=== PATIENT | male | born 1940 | race Caucasian/White ===

== ENCOUNTER 2018-03-26 11:46 | Inpatient (IN) | payer MEDICARE, OTHER ==
[~2018-03-26] VITALS: Ht 170.2 cm; Wt 89.4 kg
[2018-03-26 11:49] VITALS: BP 157/101
[2018-03-26] MEDS ORDERED: PULMICORT0.25 MG/3 INH (11:54)
[2018-03-26] MEDS ORDERED: ALBUTEROL2.5 MG/31 INH (11:54)
[2018-03-26] MEDS ORDERED: BROVANA15 MCG/2 M INH (11:54)
[2018-03-26] MEDS ORDERED: STIOLTO RESPIMAT4 GM INH (11:54)
[2018-03-26] MEDS ORDERED: TRAZODONE HCL50 MG PO (11:55)
[2018-03-26] MEDS ORDERED: ONE DAILY1 EAC2 PO (11:55)
[2018-03-26] MEDS ORDERED: PREDNISONE 10 M10 MG PO (11:55)
[2018-03-26] MEDS ORDERED: ROBITUSSIN100 MG/53 PO (11:55)
[2018-03-26] MEDS ORDERED: ASPIR 8181 MG PO (11:56)
[2018-03-26 12:26] LABS: ABSOLUTE BASOPHILS 0.1 thou/uL (0.0-0.2); ABSOLUTE EOSINOPHILS 0.4 thou/uL (0.0-0.7); ABSOLUTE LYMPHOCYTES 1.3 thou/uL (0.8-5.3); ABSOLUTE MONOCYTES 1.2 thou/uL (0.0-1.2); ABSOLUTE NEUTROPHILS 8.5 thou/uL (1.6-8.1); BASOPHILS 0.9 %; EOSINOPHILS 3.2 %; HEMATOCRIT 43.3 % (42.0-52.0); LYMPHOCYTES 11.5 %; MCH 25.6 pg (26.0-34.0); MCHC 32.4 g/dL (28.0-37.0); MCV 78.8 fL (80.0-100.0); MONOCYTES 10.3 %; MPV 8.3 fl. (7.2-11.1); NUCLEATED RBCS 0 /100WBC; PLATELET COUNT* 230 thou/uL (150-400); POLYS 74.1 %; RBC 5.49 mil/uL (4.50-6.00); RDW-CV 15.1 % (10.5-14.5); WBC 11.5 thou/uL (4.0-11.0)
[2018-03-26 12:27] LABS: BE 0.4 mmol/L (-2 to +3); HCO3 24.6 mmol/L (22.0-26.0); PCO2 38.4 mmHg (35.0-45.0); PO2 89.3 mmHg (75.0-100.0); pH 7.424 (7.340-7.450)
[2018-03-26 12:31] LABS: ANION GAP 6 mmol/L (7-16); BUN 21 mg/dL (7-18); CALCIUM 7.9 mg/dL (8.5-10.1); CHLORIDE 107 mmol/L (98-107); CO2 28 mmol/L (21-32); CREATININE 1.1 mg/dL (0.6-1.3); GLUCOSE 135 mg/dL (70-99); POTASSIUM 4.1 mmol/L (3.5-5.1); SODIUM 141 mmol/L (136-145)
[2018-03-26 12:42] LABS: ALKALINE PHOSPHATASE 55 U/L (46-116); NT-PRO BRAIN NAT PEPTIDE 787 pg/mL (<300); SGOT 19 U/L (15-37); SGPT 25 U/L (30-65); TOTAL BILIRUBIN 0.7 mg/dL (<0.1-1.0); TOTAL PROTEIN 6.5 g/dL (6.4-8.2); TROPONIN-I LEVEL <0.06 ng/mL (<0.06)
[2018-03-26 13:45] LABS: URINE BILIRUBIN NEGATIVE (Negative); URINE BLOOD NEGATIVE (Negative); URINE CLARITY CLEAR; URINE COLOR YELLOW; URINE GLUCOSE-RANDOM NEGATIVE (Negative); URINE KETONES NEGATIVE (Negative); URINE LEUKOCYTES-REFLEX NEGATIVE (Negative); URINE NITRITE-REFLEX NEGATIVE (Negative); URINE PROTEIN NEGATIVE (Negative); URINE SPECIFIC GRAVITY 1.025 (1.005-1.030); URINE UROBILINOGEN 0.2 E.U./dl (0.2-1.0)
[2018-03-26 15:09] VITALS: BP 154/73
[2018-03-26 16:01] VITALS: BP 166/81
--- NOTE | 2018-03-26 16:43 | NUR ---
PT ARRIVED TO THE UNIT JUST AFTER 4PM. PT IS A&O X4 CALM AND COOPERATIVE. PT HAS NO C/O PAIN AT THIS TIME. PT PLACED ON THE MONITOR AND IS TRACING A FIB WITH RATES IN THE 80'S AND 90'S. PT VERBALIZED UNDERSTANDING OF ADMISSION INSTRUCTIONS. PT CURRENTLY IN BED WITH TECH DOING AN ECHO. NURSING WILL CONTINUE TO MONITOR.
--- NOTE | 2018-03-26 17:24 | 2DMMODE ---
[place] [address] 2 D/M-MODE ECHOCARDIOGRAM Name: CHELSEA RODRIGUEZ Room: [address] IN [facility]#: [id number] Admission: 03/26/18 Attend Phys: Nickie Finch, Discharge: Date of : 36 Date of Service: 03/26/18 1724 Report #: [id number] THIS REPORT FOR: //name// APPROVED REPORT Study performed: 03/26/2018 16:29:17 EXAM: Comprehensive 2D, Doppler, and color-flow Echocardiogram Patient Location: In-Patient Room #: [facility] Status: routine BSA: 2.00 HR: 99 bpm BP: 166/81 mmHg Rhythm: NSR Other Information Study Quality: Good Indications Atrial Fibrillation 2D Dimensions LVEF(%): 60.20 (>50%) IVSd: 13.57 (7-11mm) LVOT Diam: 19.68 (18-24mm) LVDd: 39.96 mm PWd: 12.98 (7-11mm) Ascending Ao: 27.43 (22-36mm) LVDs: 27.31 (25-40mm) Aortic Root: 33.32 mm Monsalve's LVEF: 60.20 % Volumes Left Atrial Volume (Systole) LA ESV Index: 20.10 mL/m2 Aortic Valve AoV Peak Reid.: 1.23 m/s AO Peak Gr.: 6.02 mmHg LVOT Max P.76 mmHg AO Mean Gr.: 2.78 mmHg LVOT Mean P.34 mmHg LVOT Max V: 0.83 m/s AO V2 VTI: 20.17 cm LVOT Mean V: 0.53 m/s YAMILEX (VTI): 2.28 cm2 LVOT V1 VTI: 15.15 cm Mitral Valve E/A Ratio: 0.87 [place] [address] 2 D/M-MODE ECHOCARDIOGRAM Name: CHELSEA RODRIGUEZ Room: [address] IN [facility]#: [id number] Admission: 03/26/18 Attend Phys: Nickie Finch, Discharge: Date of : 36 Date of Service: 03/26/18 1724 Report #: [id number] MV Decel. Time: 232.06 ms MV E Max Reid.: 0.86 m/s MV PHT: 67.30 ms MVA (PHT): 3.27 cm2 TDI E/Lateral E': 7.82 E/Medial E': 7.82 Medial E' Reid.: 0.11 m/s Lateral E' Reid.: 0.11 m/s Pulmonary Valve PV Peak Reid.: 0.90 m/s PV Peak Gr.: 3.23 mmHg Left Ventricle The left ventricle is normal size. There is normal LV segmental wall motion. Mild concentric left ventricular hypertrophy. Left ventricular systolic function is normal. The left ventricular ejection fraction is within the normal range. LVEF is 60-65%. Grade I - abnormal relaxation pattern. Right Ventricle The right ventricle is normal size. The right ventricular systolic function is normal. Atria The left atrium size is normal. The right atrium size is normal. Aortic Valve The aortic valve is normal in structure. No aortic regurgitation is present. There is no aortic valvular stenosis. Mitral Valve The mitral valve is normal in structure. There is no mitral valve regurgitation noted. No evidence of mitral valve stenosis. Tricuspid Valve The tricuspid valve is normal in structure. There is no tricuspid valve regurgitation noted. Pulmonic Valve Pulmonic valve is not well visualized. There is no pulmonic valvular regurgitation. Great Vessels The aortic root is normal in size. IVC [place] [address] 2 D/M-MODE ECHOCARDIOGRAM Name: CHELSEA RODRIGUEZ Room: [address] IN .R.#: [id number] Admission: 03/26/18 Attend Phys: Nickie Finch, Discharge: Date of : 36 Date of Service: 03/26/18 1724 Report #: [id number] collapses with >50% inspiration Pericardium There is no pericardial effusion. <Conclusion> Mild concentric left ventricular hypertrophy. LVEF is 60-65%. <ELECTRONICALLY SIGNED> By: Raf Mann MD, [facility] 03/26/18 1724 23 23 Raf Mann MD, FACC /INF
--- NOTE | 2018-03-26 18:19 | NUR ---
PT CONTINUES TO BE A&O HIS HR INCREASED TO THE 140'S, CARDIZEM DRIP STARTED AT 5MG/HR. RATES ARE NOW IN THE 120'S AND TEENS. PT DENIES ANY C/O CHEST PAIN OR DISTRESS. NURSING WILL CONTINUE TO MONITOR.
--- NOTE | 2018-03-26 18:20 | EKG ---
[place] [address] ELECTROCARDIOGRAM REPORT Name: CHELSEA RODRIGUEZ Room: [address] IN [facility]#: [id number] Admission: 03/26/18 Attend Phys: Nickie Finch MD Discharge: Date of : 38 Report #: [id number] THIS REPORT FOR: //name// [facility] ED Test Date: 2018-03-26 Test Time: 11:53:41 Pat Name: CHELSEA RODRIGUEZ Department: Room: Gender: Insurance Legal Assistant: : 1940 Requested By: Xena Beth Order Number: [id number] MD: Raf Mann Measurements Intervals [place] Rate: 162 P: [place]: QRS: 167 QRSD: 125 T: 26 QT: 314 QTc: 516 Interpretive Statements rapid atrial fibrillation low voltage Right bundle branch block Baseline wander in lead(s) II No previous ECG available for comparison Electronically Signed On 03-26-2018 18:20:42 CDT by Raf Mann [email or web address] <ELECTRONICALLY SIGNED> By: Raf Mann MD, [facility] 03/26/18 1820 1153 115 Raf Mann MD, [facility] /EPI
[2018-03-26 20:00] VITALS: BP 146/80
[2018-03-27] VITALS: BP 137/76
[2018-03-27 04:00] VITALS: BP 142/78
[2018-03-27 04:28] LABS: HEMATOCRIT 42.3 % (42.0-52.0); HEMOGLOBIN 13.8 gm/dL (14.0-18.0); MCH 25.6 pg (26.0-34.0); MCHC 32.7 g/dL (28.0-37.0); MCV 78.3 fL (80.0-100.0); MPV 8.6 fl. (7.2-11.1); RBC 5.4 mil/uL (4.50-6.00); RDW-CV 14.7 % (10.5-14.5); WBC 7.5 thou/uL (4.0-11.0)
[2018-03-27 04:32] LABS: CALCIUM 7.8 mg/dL (8.5-10.1); CREATININE 0.9 mg/dL (0.6-1.3); MAGNESIUM 1.9 mg/dL (1.8-2.4)
[2018-03-27 04:52] LABS: INR 1.1; PROTIME 10.7 Seconds (9.20-11.50)
--- NOTE | 2018-03-27 05:32 | NUR ---
PT CARE ASSUMED AFTER REPORT. ASSESSMENT COMPLETE. AFIB ON MONITOR. NEW IV PLACED AFTER PT DISLODGED PREVIOUS ONE. CARDIZEM GTT INFUSING. DENIES PAIN. PT VERY SOA WITH MOVEMENT/EXERTION. O2 3L NC. FALL PRECAUTIONS IN PLACE INCLUDING BED ALARM. CALL LIGHT IN REACH. BED IN LOWEST POSITION. SLOW TO PROGRESS TOWARDS GOALS.
[2018-03-27 08:00] VITALS: BP 145/80
--- NOTE | 2018-03-27 08:22 | NUR ---
ASSUMED CARE OF PT AT 0705. PT CONTINUES TO BE A&O X4 CALM AND COOOPERATIVE. HE HAS NO C/O PAIN OR DISTRESS AND REPORTS EXTREME SOA WITH ANY EXERTION. PT HR HAS BEEN SPIKING TO THE 150'S. CARDIZEM INCREASED TO 10MG/HR. WILL CONTINUE TO MONITOR CLOSELY.
[2018-03-27 12:05] VITALS: BP 145/72
--- NOTE | 2018-03-27 12:19 | NUR ---
Pt is A&O. Resides at [facility]. IDL provides meals, laundry and housekeeping, Pt completes on IADLS. Pt wears home o2 continous through [employer]. Pt has an electric wc that he uses for distances outside of his apartment. Hx of HH. No hx of SNF. Strong support sx, has a son and dtr in the area. Discussed possible need for HH, Pt stated, "I would like an aide only, I've had HH before and I don't want a nurse or therapy." Pt stated that he has only been able to complete a sponge bath. Informed that he would likely have to have a nurse ordered, in order to get an aide, Pt declined wanting HH if he can't just have an aide. CM following.
--- NOTE | 2018-03-27 13:34 | EKG ---
[place] [address] ELECTROCARDIOGRAM REPORT Name: CHELSEA RODRIGUEZ Room: [address] IN [facility]#: [id number] Admission: 03/26/18 Attend Phys: Nickie Finch MD Discharge: Date of : 38 Report #: [id number] THIS REPORT FOR: //name// [facility] ED Test Date: 2018-03-26 Test Time: 14:05:32 Pat Name: CHELSEA RODRIGUEZ Department: Room: Gender: Supervisor Evaporator: [facility] : 1940 Requested By: Xena Beth Order Number: [id number] MD: Raf Mann Measurements Intervals [place] Rate: 117 P: [place]: QRS: 97 QRSD: 133 T: 23 QT: 377 QTc: 526 Interpretive Statements Atrial fibrillation Paired ventricular premature complexes RBBB and LPFB Compared to ECG 03/26/2018 11:53:41 Ventricular premature complex(es) now present Electronically Signed On 03-27-2018 13:34:30 CDT by Raf Mann [email or web address] <ELECTRONICALLY SIGNED> By: Raf Mann MD, [facility] 03/27/18 1334 1405 1405 Raf Mann MD, [facility] /EPI
--- NOTE | 2018-03-27 13:38 | EKG ---
[place] [address] ELECTROCARDIOGRAM REPORT Name: CORAL RODRIGUEZBERT Christopher Room: [address] ADM IN .R.#: [id number] Admission: 03/26/18 Attend Phys: Nickie Finch MD Discharge: Date of : 36 Report #: [id number] THIS REPORT FOR: //name// [facility] Test Date: 2018-03-26 Test Time: 19:37:31 Pat Name: CHELSEA RODRIGUEZ Department: Room: [address] Gender: M Slicing Machine Operator: : 1940 Requested By: Nickie Finch Order Number: [id number] Reading MD: Raf Mann Measurements Intervals [place] Rate: 113 P: 1 [place]: 147 QRS: 32 QRSD: 144 T: 14 QT: 425 QTc: 583 Interpretive Statements atrial fibrillation with artifact Right bundle branch block PVC Electronically Signed On 03-27-2018 13:38:14 CDT by Raf Mann [email or web address] <ELECTRONICALLY SIGNED> By: Rfa Mann MD, [facility] 03/27/18 1338 193 193 Raf Mann MD, [facility]ACC /EPI
--- NOTE | 2018-03-27 13:51 | EKG ---
[place] [address] ELECTROCARDIOGRAM REPORT Name: CHELSEA RODRIGUEZ Room: [address] ADM IN .R.#: [id number] Admission: 03/26/18 Attend Phys: Nickie Finch MD Discharge: Date of : 36 Report #: [id number] THIS REPORT FOR: //name// [facility] Test Date: 2018-03-27 Test Time: 08:14:50 Pat Name: CHELSEA RODRIGUEZ Department: Room: [address] Gender: M Banking Assistant: JACKELIN : 1940 Requested By: Raf Mann Order Number: [id number] Russ MD: Raf Mann Measurements Intervals [place] Rate: 109 P: -40 [place]: 174 QRS: 98 QRSD: 140 T: -1 QT: 393 QTc: 530 Interpretive Statements atrial fibrillation ventricular premature complexes RBBB and LPFB Electronically Signed On 03-27-2018 13:50:58 CDT by Raf Mann [email or web address] <ELECTRONICALLY SIGNED> By: Raf Mann MD, [facility] 03/27/18 1350 0814 3 Raf Mann MD, FACC /EPI
[2018-03-27 16:06] VITALS: BP 149/80
--- NOTE | 2018-03-27 18:20 | NUR ---
PT REMAINS A&O CALM AND COOPERATIVE. HE WAS CHANGED FROM IV TO PO CARDIZEM, RATES ARE CURRENTLY FROM 90 TO 115. PT HAS NO C/O PAIN OR DISTRESS. HE HAS A GOOD APPETITE HE HAS ATE GREATER THAN 75% OF ALL MEALS TODAY. HOURLY ROUNDING COMPLETED FOR COMFORT AND SAFTEY.
--- NOTE | 2018-03-27 18:47 | NUR ---
PT IV INFILTRATED AND WAS REMOVED BY THIS NURSE. A NEW IV WAS PLACED IN THE PATIENTS LEFT POSTERIOR FOREARM. INSERTED WITH 1 ATTEMPT, BLOOD RETURN POSITIVE AND FLUSHES WITHOUT RESISTANCE.
[2018-03-27 20:00] VITALS: BP 137/74
[2018-03-28] VITALS (7 sets, daily range): BP systolic 110–144; BP diastolic 55–74
[2018-03-28 04:56] LABS: HEMATOCRIT 39.6 % (42.0-52.0); HEMOGLOBIN 12.9 gm/dL (14.0-18.0); MCH 25.4 pg (26.0-34.0); MCHC 32.6 g/dL (28.0-37.0); MPV 8.4 fl. (7.2-11.1); RBC 5.08 mil/uL (4.50-6.00); WBC 14.1 thou/uL (4.0-11.0)
[2018-03-28 05:05] LABS: INR 1.2; PROTIME 11.2 Seconds (9.20-11.50)
--- NOTE | 2018-03-28 05:42 | NUR ---
PT CARE ASSUMED AFTER REPORT. ASSESSMENT COMPLETE. AFIB ON MONITOR. O2 3L NC. DENIES PAIN. FALL PRECAUTIONS IN PLACE INCLUDING BED ALARM. CALL LIGHT IN REACH. BED IN LOWEST POSITION. PROGRESSING TOWARDS GOALS.
[2018-03-28 06:17] LABS: CALCIUM 8.4 mg/dL (8.5-10.1); CREATININE 0.9 mg/dL (0.6-1.3); POTASSIUM 4.2 mmol/L (3.5-5.1)
--- NOTE | 2018-03-28 08:28 | NUR ---
ASSUMED PT. CARE AND RECEIVED REPORT AT 0730. PT A/OX4, VSS, MONITOR ON TRACING AFIB RATES IN THE 80'S CURRENTLY. PT. DENIES CURRENT PAIN. STATES HE IS BREATHING BETTER THIS MORNING THAN IN 2 WEEKS. FULL ASSESSMENT COMPLETED, REFER TO CHARTING. PT ON BASELINE 3LNC @ 95%. CALL LIGHT IN REACH, FALL PRECAUTIONS IN PLACE. WILL CONTINUE WITH PLAN OF CARE.
--- NOTE | 2018-03-28 13:30 | NUR ---
Pt discharging to home today with [facility]. Faxed dc orders. Patience here from [facility] to meet with Pt. Dtr/facility to provide dc transportation.
[2018-03-28] MEDS ORDERED: DIGOXIN250 MCG PO (15:12)
[2018-03-28] MEDS ORDERED: CARDIZEM CD180 MG PO (15:12)
[2018-03-28] MEDS ORDERED: LEVAQUIN 500 M500 M2 PO (15:13)
[2018-03-28] MEDS ORDERED: COUMADIN 2 MG TA2 M1 PO (15:13)
[2018-03-28] MEDS ORDERED: PREDNISONE 10 M10 MG PO (15:15)
[2018-03-28] MEDS ORDERED: CEPACOL SORE T1 EAC7 PO (15:42)
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
--- NOTE | 2018-03-31 14:35 | NUR ---
WAS ASKED TO GET PRIOR AUTH FOR DIGOXIN FOR PT. CALL TO [facility], WAS ABLE TO FAX INFO TO THEM FOR PRIOR AUTH, ASKED FOR IT TO BE EXPEDITED, COULD TAKE 24HR. SCRIPT IS AT [email or web address] [phone]
== END 2018-03-28 17:05 | disposition home health service (06) | DRG 177 ==
LOC: M.ERS 11:46 → M.2W 14:18 → M.TBA-ER 14:18 → M.2W 15:15
PROVIDERS: Internal Medicine Cardiovascular Disease; Personal Emergency Response Attendant; ADMIT Internal Medicine
DX: J69.0 Pneumonitis due to inhalation of food and vomit (principal); J96.20 Acute and chronic respiratory failure, unspecified whether with hypoxia or hypercapnia; J44.1 Chronic obstructive pulmonary disease with (acute) exacerbation; I48.91 Unspecified atrial fibrillation; I10 Essential (primary) hypertension; Z99.81 Dependence on supplemental oxygen; Z79.899 Other long term (current) drug therapy; Z79.82 Long term (current) use of aspirin; Z87.891 Personal history of nicotine dependence; Z90.89 Acquired absence of other organs; Z98.49 Cataract extraction status, unspecified eye

== ENCOUNTER 2018-12-28 04:55 | Inpatient (IN) | payer MEDICARE, OTHER ==
[~2018-12-28] VITALS: Ht 170.2 cm; Wt 71.7 kg
[~2018-12-28 04:55] MED LIST: ALBUTEROL2.5 MG/31 INH; ASPIR 8181 MG PO; BROVANA15 MCG/2 M INH; CARDIZEM CD180 MG PO; CEPACOL SORE T1 EAC7 PO; COUMADIN 2 MG TA2 M1 PO; DIGOXIN250 MCG PO; LEVAQUIN 500 M500 M2 PO; ONE DAILY1 EAC2 PO; PREDNISONE 10 M10 MG PO; PULMICORT0.25 MG/3 INH; ROBITUSSIN100 MG/53 PO; STIOLTO RESPIMAT4 GM INH; TRAZODONE HCL50 MG PO
[2018-12-28 04:56] VITALS: BP 143/65
[2018-12-28] MEDS ORDERED: PRADAXA150 MG PO (05:10)
[2018-12-28] MEDS ORDERED: MUCINEX600 MG PO (05:13)
[2018-12-28] MEDS ORDERED: CARTIA XT180 M1 PO ×2 (05:14→09:34)
[2018-12-28 05:31] LABS: ABSOLUTE BASOPHILS 0.1 thou/uL (0.0-0.2); ABSOLUTE EOSINOPHILS 0.2 thou/uL (0.0-0.7); ABSOLUTE LYMPHOCYTES 1.6 thou/uL (0.8-5.3); ABSOLUTE MONOCYTES 1.4 thou/uL (0.0-1.2); ABSOLUTE NEUTROPHILS 9.6 thou/uL (1.6-8.1); BASOPHILS 0.8 %; EOSINOPHILS 1.8 %; HEMATOCRIT 43.4 % (42.0-52.0); LYMPHOCYTES 12.3 %; MCH 23.6 pg (26.0-34.0); MCHC 32.2 g/dL (28.0-37.0); MCV 73.4 fL (80.0-100.0); MONOCYTES 11.1 %; MPV 8.4 fl. (7.2-11.1); NUCLEATED RBCS 0 /100WBC; PLATELET COUNT* 263 thou/uL (150-400); RBC 5.92 mil/uL (4.50-6.00); RDW-CV 16.3 % (10.5-14.5); WBC 12.9 thou/uL (4.0-11.0)
[2018-12-28 05:38] LABS: APTT 31.5 Seconds (25.0-31.3); PROTIME 10.5 Seconds (9.20-11.50)
[2018-12-28 05:52] LABS: ALBUMIN 3.7 g/dL (3.4-5.0); ALKALINE PHOSPHATASE 94 U/L (46-116); ANION GAP 9 mmol/L (7-16); BUN 18 mg/dL (7-18); CALCIUM 8.8 mg/dL (8.5-10.1); CHLORIDE 104 mmol/L (98-107); CO2 28 mmol/L (21-32); GLUCOSE 102 mg/dL (70-99); LIPASE 242 U/L (73-393); MAGNESIUM 2.1 mg/dL (1.8-2.4); NT-PRO BRAIN NAT PEPTIDE 558 pg/mL (<300); SGOT 20 U/L (15-37); SGPT 26 U/L (30-65); SODIUM 141 mmol/L (136-145); TOTAL BILIRUBIN 0.5 mg/dL (<0.1-1.0); TOTAL PROTEIN 7.5 g/dL (6.4-8.2); TROPONIN-I LEVEL <0.06 ng/mL (<0.06)
[2018-12-28 06:40] VITALS: BP 146/64
[2018-12-28 08:00] VITALS: BP 174/75
[2018-12-28] MEDS ORDERED: UNICOMPLEX M TA1 TA1 PO (09:37)
--- NOTE | 2018-12-28 11:29 | NUR ---
ASSUMED CARE OF PATIENT AT 0730 THIS AM. PATIENT HAD NEWLY ARRIVED FROM THE ER. PATIENT PLACED ON TELE MONITOR BY COLOR SEPARATION PHOTOGRAPHER. PATIENT ORIENTED TO ROOM AND CALL LIGHT AND PROCEDURES. ADMISSION QUESTIONS COMPLETED. PATIENT GIVEN BREAKFAST. MEDICATIONS RECONCILED WITH PATIENT. PATIENT IS RESTING AT THIS TIME. CALL LIGHT IS IN REACH. TELE SHOWS SR WITH PACS AND BBB. O2 IS ON AT 3 LITERS NC. RESPIRATORY TX STARTED PER RT.
[2018-12-28 12:00] VITALS: BP 143/56
[2018-12-28] MEDS ORDERED: ELIQUIS5 MG PO (13:35)
[2018-12-28 15:15] VITALS: BP 144/63
[2018-12-28 20:00] VITALS: BP 162/74
[2018-12-29] VITALS: BP 143/62
--- NOTE | 2018-12-29 03:17 | NUR ---
ASSUMED PT CARE AT 1930. ASSESSMENT COMPLETED CHARTED. ABLE TO MAKE NEEDS KNOWN. PT ON BEDREST FOR EXTREME SOB WITH EXCERSION. USES URINAL AND BEDPAN. NO C/O PAIN OR SOA. VSS. RESTING IN BED AT THIS TIME. WILL CONTINUE TO MONITOR.
[2018-12-29 04:00] VITALS: BP 152/86
[2018-12-29 07:54] VITALS: BP 144/96
[2018-12-29 12:17] VITALS: BP 140/48
--- NOTE | 2018-12-29 14:11 | EKG ---
[place] [address] ELECTROCARDIOGRAM REPORT Name: CHELSEA RODRIGUEZ JR Room: [address] ADM IN M.R.#: [id number] Admission: 12/28/18 Attend Phys: Oniel Hughes MD Discharge: Date of : 36 Report #: [id number] THIS REPORT FOR: //name// [facility] ED Test Date: 2018-12-28 Test Time: 05:00:20 Pat Name: CHELSEA JENNIFER Department: Room: [facility] Gender: Bakeshop Cleaner: CAROLE : 1940 Requested By: Sadiq Horner Order Number: [id number] MD: Romel Huff Measurements Intervals [place] Rate: 75 P: 0 [place]: 214 QRS: -136 QRSD: 136 T: 30 QT: 379 QTc: 424 Interpretive Statements Sinus rhythm Atrial premature complexes Borderline prolonged OK interval Right bundle branch block Compared to ECG 03/27/2018 08:14:50 Atrial premature complex(es) now present Atrial fibrillation no longer present Ventricular premature complex(es) no longer present Left posterior fascicular block no longer present Electronically Signed On 12-29-2018 14:11:15 SHAPER MACHINE HAND by Romel Huff [email or web address] <ELECTRONICALLY SIGNED> By: Romel Huff MD, [facility] 12/29/18 1411 0500 0500 Romel Huff MD, [facility] /EPI
--- NOTE | 2018-12-29 14:14 | EKG ---
[place] [address] ELECTROCARDIOGRAM REPORT Name: CHELSEA RODRIGUEZ JR Room: [address] ADM IN M.R.#: [id number] Admission: 12/28/18 Attend Phys: Oniel Hughes MD Discharge: Date of : 36 Report #: [id number] THIS REPORT FOR: //name// [facility] Test Date: 2018-12-28 Test Time: 10:54:46 Pat Name: CHELSEA RODRIGUEZ Department: Room: [address] Gender: M Injection Molding Supervisor: 27 : 1940 Requested By: Oniel Hughes Order Number: [id number] Russ MD: Romel Huff Measurements Intervals [place] Rate: 78 P: -14 [place]: 165 QRS: -108 QRSD: 143 T: -20 QT: 383 QTc: 437 Interpretive Statements Sinus rhythm Atrial premature complexes Right bundle branch block Anteroseptal infarct, age indeterminate Compared to ECG 03/27/2018 08:14:50 Myocardial infarct finding now present Atrial fibrillation no longer present Ventricular premature complex(es) no longer present Electronically Signed On 12-29-2018 14:14:05 FREEZER MACHINE OPERATOR by Romel Huff [email or web address] <ELECTRONICALLY SIGNED> By: Romel Huff MD, [facility] 12/29/18 1414 1054 1054 Romel Huff MD, [facility]AC /EPI
--- NOTE | 2018-12-29 14:17 | EKG ---
[place] [address] ELECTROCARDIOGRAM REPORT Name: CHELSEA RODRIGUEZ JR Room: [address] ADM IN M.R.#: [id number] Admission: 12/28/18 Attend Phys: Oniel Hughes MD Discharge: Date of : 36 Report #: [id number] THIS REPORT FOR: //name// [facility] Test Date: 2018-12-28 Test Time: 17:14:09 Pat Name: CHELSEA RODRIGUEZ Department: Room: [address] Gender: M Ethernet Network Architect: : 1940 Requested By: Oniel Hughes Order Number: [id number] Russ MD: Romel Huff Measurements Intervals [place] Rate: 93 P: -37 [place]: 190 QRS: -140 QRSD: 145 T: -18 QT: 369 QTc: 459 Interpretive Statements sinus rhythm with pac's Right bundle branch block Electronically Signed On 12-29-2018 14:17:08 SPECIAL SERVICES SUPERVISOR by Romel Huff [email or web address] <ELECTRONICALLY SIGNED> By: Romel Huff MD, [facility] 12/29/18 1417 D: 02/1713 13 Romel Huff MD, FACC /EPI
--- NOTE | 2018-12-29 14:37 | NUR ---
Pt is A&O. Pt resides at [facility]. Pt is independent with IADLS, facilty completes ADLs. Pt states that he can ambulate short distances only, Pt uses a power wc for longer distances. Pt wears continues o2 through [employer]. Hx of [facility]. No hx of SNF. Goal is home at [place]. Pt stated that he does not want HH at [place]. Following.
--- NOTE | 2018-12-29 14:58 | NUR ---
Pt is A&O. Resides at [facility]. Pt is independent with ADLs, IDL completes IADLS. Pt wears continuous o2 provided through [employer]. Pt is able to ambulate distances within his apartment, uses a power wc for longer distances. Hx of [facility]. No hx of SNF. Goal is to return to [facility] [place]. Following.
[2018-12-29 16:00] VITALS: BP 147/63
--- NOTE | 2018-12-29 16:16 | CON ---
[address] [address] CONSULTATION Name: CHELSEA RODRIGUEZ JR Room: [address] IN M.R.#: [id number] Admission: 12/28/18 Attend Phys: Oniel Hughes MD Discharge: Date of : 36 Report #: [id number] THIS REPORT FOR: //name// CC: Raf Hughes MD DATE OF SERVICE: 12/29/2018 LOCATION: Room [facility]. ATTENDING PHYSICIAN: Dr. Valera. INDICATION FOR CONSULTATION: Severe COPD, oxygen every other day, steroid dependent. HISTORY OF PRESENT ILLNESS: The patient is an 78-year-old male, prior smoker, with severe COPD. He has been on oxygen 3 liters for the past 4-5 years and then also has been every other day prednisone dependent. The patient had a recent episode of atrial fibrillation with rapid ventricular response. He has had possibly some chest wall trauma on his left side and movement causes pain. Not much movement at this time. He is due for a stress test. The patient has a history of hypertension and atrial fibrillation in the past, has been on chronic anticoagulation, was on warfarin and then he was changed to apixaban 5 mg b.i.d. for his atrial fibrillation. Prednisone dose has been 10 mg every other day and he has done well with that. He has kept him out of the hospital, kept him out of flareups. PAST MEDICAL HISTORY: Atrial fibrillation, severe COPD, oxygen every other day, steroid dependent for the past 5-7 years and then also some mild hypertension. No history of diabetes. ALLERGIES: He has no known medical allergies. OUTPATIENT MEDICATIONS: Included DuoNeb nebulizers 3-4 times a day followed with budesonide 0.25 mg inhaled b.i.d., oxygen dose is 3 liters nasal cannula continuous, prednisone dose 10 mg every Saturday, Saturday and Saturday and he is also on apixaban 5 mg b.i.d., Lanoxin 0.25 mg daily, diltiazem (Cartia XT) 180 mg b.i.d. He was supposed to be on a Stiolto 2 puffs daily, I am not sure if he is still on that yet or not. FAMILY HISTORY: Negative for premature cardiopulmonary disease. SOCIAL HISTORY: The patient was living at [facility]. Dr. Nath may have been his primary care physician. His other social history, he has a prior 40-50 pack [place] [address] CONSULTATION Name: CHELSEA RODRIGUEZ Room: [address]#: [id number] Admission: 12/28/18 Attend Phys: Oniel Hughes MD Discharge: Date of : 36 Report #: [id number] quit 5-7 years ago. Denies any alcohol or illicit drug use. He drinks about a glass of alcohol or wine maybe 2-3 times a week. REVIEW OF SYSTEMS: A 14-point review of systems reviewed and negative except for pertinent positives noted in HPI. PHYSICAL EXAMINATION: GENERAL: Alert, oriented 78-year-old male, remembers me as I walked in the room, in no acute distress. VITAL SIGNS: Blood pressure is 144/96, heart rate is 70 and regular, respirations 16 and temperature is 36.4 degrees. He is 5 feet 10 inches tall, weight is 72 kilograms or 158 pounds, BMI is 25, saturation on 3 liters is 94%. HEENT: Nares and pharynx are clear. NECK: Supple, without nodes. No chest wall tenderness. CHEST: Reveals markedly diminished breath sounds, prolonged expiratory phase. CARDIOVASCULAR: Irregular rate and rhythm with ventricular response in the 70s. No S3 is noted. Variable S1 is noted. ABDOMEN: Soft. No masses, megaly. EXTREMITIES: No calf tenderness. No cyanosis, clubbing or edema. NEUROLOGIC: Nonfocal and intact. LABORATORY DATA: Hemoglobin is 14, white count is 12,900, normal differential, platelets 263,000 and no increase in eosinophils. Chemistry: Sodium is 141, potassium is 4.0, chloride is 104, bicarbonate is 28, BUN is 18, creatinine 1.0 and glucose is 102. LFTs within normal limits. Anti-proBNP is 558. Troponins negative. Albumin is 3.7. Lipase 242. Outpatient PFTs pending final results from office records. FEV1 is 0.7 with an FVC of 2.2 liters, ratio is 31%, FEV1 is 35% of predicted consistent with GOLD level 4. Chest x-ray shows COPD, hyperinflation, no CHF. EKG shows irregular rate and rhythm with atrial fibrillation, no acute changes. IMPRESSION: 1. Atypical chest pain may be related to chronic obstructive pulmonary disease. 2. Severe chronic obstructive pulmonary disease, oxygen every other day, steroid dependent. PLAN: Continue current meds for COPD. We will see what the chemical induced stress test shows on this patient. Not a good operative candidate, not a good intervention candidate. Conservative therapy is indicated. The patient I believe was previously a DNR/DNI. I think he is a full code blue at this time. We will await the Cardiology consult. [address] [place] [address] CONSULTATION Name: CHELSEA RODRIGUEZ JR Room: [address] IN M.R.#: [id number] Admission: 12/28/18 Attend Phys: Oniel Hughes MD Discharge: Date of : 38 Report #: [id number] Thanks again for allowing us to participate in this man's care. I will continue to follow up in the office after he is discharged. <ELECTRONICALLY SIGNED> By: Chase Contreras MD 12/29/18 1616 0841 [id number] Contreras MD /nt
--- NOTE | 2018-12-29 18:27 | NUR ---
PT DYSPNEIC WITH LABORED RESPIRATIONS AT REST. LUNGS DIM THROUGHOUT. PT DENIES INCREASED SOA OR PAIN. 3L O2 NC, SAT LOW TO MID 90S. PT ABLE TO MAKE NEEDS KNOWN, CALL LIGHT IN REACH
[2018-12-29 19:00] VITALS: BP 107/86
[2018-12-30] VITALS: BP 144/70
[2018-12-30 03:51] VITALS: BP 127/55
--- NOTE | 2018-12-30 06:33 | NUR ---
ASSESSMENT COMPLETED CHARTED. VSS. TRACING SR WITH PVCS/PACS AND OCCASIONAL AFIB CAPTURED ON EKG. PT RESTED WELL T/O THIS SHIFT. PT IS NPO PENDING STRESS TEST TODAY. NO NEW CONCERNS. HOURLY ROUNDING FOR SAFETY. CLWR.
[2018-12-30 08:00] VITALS: BP 144/62
--- NOTE | 2018-12-30 09:48 | EKG ---
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1940 Requested By: Oniel Hughes Order Number: [id number] Reading MD: Eliud Dimas Measurements Intervals [place] Rate: 74 P: MA: QRS: 65 QRSD: 140 T: 3 QT: 409 QTc: 454 Interpretive Statements Atrial fibrillation Right bundle branch block Compared to ECG 12/28/2018 17:14:09 Sinus rhythm no longer present Electronically Signed On 12-30-2018 9:48:02 DIP STAND LOADER by Eliud Dimas [email or web address] <ELECTRONICALLY SIGNED> By: Eliud Dimas MD, [facility] 12/30/18 0948 0353 0353 Eliud Dimas MD, [facility] /EPI
[2018-12-30 12:04] VITALS: BP 154/67
--- NOTE | 2018-12-30 18:39 | NUR ---
GLORY RESTING IN BED. UP WITH STANDBY ASSISTANCE. AWAITING RESULTS OF NUCLEAR STRESS TESTING. VITAL SIGNS STABLE. PATIENT WAS ASSISTED TO SHOWER ROOM AND ASSISTED WITH FULL SHOWER. PULMONARY FOLLOWING. HOURLY ROUNDING COMPLETED FOR PATIENT SAFETY.
[2018-12-30 20:00] VITALS: BP 145/67
[2018-12-31] VITALS: BP 147/63
[2018-12-31 04:00] VITALS: BP 132/88
[2018-12-31 08:05] VITALS: BP 137/59
[2018-12-31] MEDS ORDERED: PREDNISONE 10 M10 MG PO (10:57)
--- NOTE | 2018-12-31 10:58 | NUR ---
RECEIVED REPORT FROM CHARLIE,ASSUMED CARE OF PT AT 0730.PT IS A/OX4,VSS,TRACING SR WITH BBB ON MONITOR.IV PATENT AND SALINE LOCKED.PT IS CALM AND COOPERATIVE WITH NO COMPLAINS OF PAIN.PT LEFT RESTING ON BED WITH CALL LIGHT AND FALL PRECAUTION IN PLACE.WILL CONTINUE TO MONITOR.
--- NOTE | 2018-12-31 11:35 | NUR ---
THIS NURSE REVIEWED ORIENTEES CHARTING AND NOTE AND AGREES.
[2018-12-31 12:00] VITALS: BP 140/56
[2018-12-31 14:03] VITALS: BP 140/56
[2018-12-31] MEDS ORDERED: SINGULAIR 10 MG10 M1 PO (14:09)
--- NOTE | 2018-12-31 15:57 | NUR ---
PT OK FOR DISCHARGE.DISCHARGE PAPERWORK COMPLETED AND GIVEN TO PT.SCRIPTS GIVEN AND CALLED INTO [facility] BY NURSE.PT EDUCATED ON CORRECT WAY TO TAKE ELIQUIS.IV REMOVED.HEART MONITOR REMOVED AND RETURNED TO NURSING STATION.TRANSPORTATION SET UP WITH [employer].PT WAITING IN ROOM FOR RIDE.ALL PERSONAL BELONGINGS PACKED AND TAKEN WITH PT.
--- NOTE | 2018-12-31 17:36 | CARDNUC ---
[place] [address] CARDIAC NUCLEAR IMAGING REPORT Name: CHELSEA RODRIGUEZ JR Room: [address]#: [id number] Admission: 12/28/18 Attend Phys: Oniel Hughes, Discharge: 12/31/18 Date of : 36 Date of Service: 12/31/18 1736 Report #: [id number] THIS REPORT FOR: //name// APPROVED REPORT Study performed: 12/29/2018 09:04:00 Indication: Chest pain Patient Location: In-Patient Room #: [facility] Stress Tech: Sofia Forte Stress Nurse: Florence Raymond RN Ht: 5 ft 7 in Wt: 160 lbs BSA: 1.84 m2 BMI: 25.05 Medical History Medical History: Angina, Atrial Fibrillation, COPD, Former Smoker, HTN, RBBB, SOB, Weakness, Hypoxic Respiratory Failure. Medications: Eliquis, Cardizem, Solu-Medrol, Digoxin. Allergies: No known drug allergies Cardiac Risk Factors: Age, HTN, SOB, Past Smoker. Previous Cardiac Procedures: None Pretest Chest Pain Characteristics: No chest pain Exercise History: Sedentary Physical Disabilities: Severe COPD, O2 3L NC, Generalized weakness/Fatigue. Meds Held (24 hrs): None Resting Data Rest SPECT myocardial perfusion imaging was performed in supine position 30 minutes following the intravenous injection of 11.1 mCi of Tc-99m Sestamibi. Time of rest injection: 07:55 The images were gated to evaluate regional wall motion and calculate left ventricular ejection fraction. Administration Route: IV Administration Site: Left AC Pharmacologic Stress Pharmacologic stress test was performed by injecting Regadenoson 0.4 mg IV push over 10-15 seconds immediately followed by the intravenous injection of 34.1 mCi of Tc-99m Sestamibi. Time of stress injection: 09:55 Administration Route: [place] [address] CARDIAC NUCLEAR IMAGING REPORT Name: CHELSEA RODRIGUEZ JR Room: [address] IN [facility]#: [id number] Admission: 12/28/18 Attend Phys: Oniel Hughes, Discharge: 12/31/18 Date of : 36 Date of Service: 12/31/18 1736 Report #: [id number] Administration Site: Left AC Heart Rate at time of stress injection: 169 bpm. Gated Stress SPECT was performed 40 minutes after stress injection. The images were gated to evaluate regional wall motion and calculate left ventricular ejection fraction. Prone imaging was performed. Stress Test Details Stress Test: Pharmacological stress test performed using dobutamine initiated at 5 mcg/kg/min titrated sequentially 10, 20, 30 and 40 mcg/kg/min to target heart rate. Reason for pharmacologic stress test: physical limitation, Severe COPD, O2 3L NC, Generalized weakness/Fatigue.. HR Max Heart Rate (APMHR): 140 bpm Resting HR: 67 bpm Target HR (85% APMHR): 119 bpm Max HR Achieved: 169 bpm % of APMHR: 120 Recovery HR: 98 bpm BP Resting BP: 152/72 mmHg Max BP: 160/57 mmHg Recovery BP: 146/65 mmHg ECG Resting ECG: Sinus Rhythm, RBBB Stress ECG: Sinus Tachycardia, RBBB ST Change: None Arrhythmia: VPC's Recovery ECG: Sinus Rhythm, RBBB Recovery ST Change: None Recovery Arrhythmia: VPC Clinical Reason for Termination: Completed protocol Stress Symptoms: Dyspnea, Lightheaded Exercise duration: 11 min 58 sec Exercise capacity: 1.00 METs The patient tolerated dobutamine infusion without significant symptoms. Nurse Comments 78 year old male inpatient presented with severe COPD and 3L O2 NC. Patient performed a dobutamine nuclear medicine test sitting. Patient tolerated test well. Recovery unremarkable[place] [address] CARDIAC NUCLEAR IMAGING REPORT Name: CHELSEA RODRIGUEZ JR Room: [address]#: [id number] Admission: 12/28/18 Attend Phys: Oniel Hughes, Discharge: 12/31/18 Date of : 36 Date of Service: 12/31/18 1736 Report #: [id number] wheelchair by staff to Nuclear Medicine for images. Patient stable with no complaints at that time. Stress ECG Conclusion The baseline 12-lead EKG showed sinus rhythm with right bundle-branch block. EKGs obtained during and post dobutamine infusion show sinus rhythm and sinus tachycardia and there were no significant ST or T wave changes when compared baseline. There were unifocal premature ventricular contractions noted. Study Quality Study: Good Artifact: Mild Diaphragmatic artifact Study Data Post stress, the left ventricular ejection was 60%.. Perfusion Myocardial perfusion images obtained in the supine position at rest and post dobutamine stress show mild photopenia in the inferior wall that resolves with post stress prone imaging suggesting diaphragmatic attenuation artifact. No other significant fixed or reversible defects were identified. Wall Motion Normal left ventricular wall motion. Nuclear Conclusion ECG Findings: negative for ischemia Clinical Findings: negative for ischemia Nuclear Findings: negative for ischemia Exercise Capacity: not assessed Left Ventricular Function: normal Risk Study: low Myocardial perfusion images show no defect to suggest infarct or ischemia. Left ventricular systolic function appears normal on gated studies. This is a low risk study. <Conclusion> The baseline 12-lead EKG showed sinus rhythm with right bundle-branch block. EKGs obtained during and post dobutamine infusion show sinus rhythm and sinus tachycardia and there were [place] [address] CARDIAC NUCLEAR IMAGING REPORT Name: CHELSEA ORDRIGUEZ JR Room: [address]#: [id number] Admission: 12/28/18 Attend Phys: Oniel Hugehs, Discharge: 12/31/18 Date of : 36 Date of Service: 12/31/18 1736 Report #: [id number] wave changes when compared baseline. There were unifocal premature ventricular contractions noted. <ELECTRONICALLY SIGNED> By: Jose Wynn MD, FACC 12/31/18 1736 35 173 Jose Wynn MD, FACC /INF
== END 2018-12-31 16:43 | disposition home or self-care (01) | DRG 205 ==
LOC: M.ERS 04:55 → M.2W 06:08 → M.TBA-ER 06:08 → M.2W 06:29
PROVIDERS: Family Medicine
DX: M94.0 Chondrocostal junction syndrome [Tietze] (principal); J96.00 Acute respiratory failure, unspecified whether with hypoxia or hypercapnia; J44.1 Chronic obstructive pulmonary disease with (acute) exacerbation; E44.1 Mild protein-calorie malnutrition; I48.0 Paroxysmal atrial fibrillation; R54 Age-related physical debility; I10 Essential (primary) hypertension; Z99.81 Dependence on supplemental oxygen; Z68.24 Body mass index [BMI] 24.0-24.9, adult; Z79.51 Long term (current) use of inhaled steroids; Z79.899 Other long term (current) drug therapy

== ENCOUNTER 2019-01-06 10:50 | Inpatient (IN) | payer MEDICARE, OTHER ==
[~2019-01-06] VITALS: Ht 170.2 cm; Wt 142.0 kg
[~2019-01-06 10:50] MED LIST changes: +CARTIA XT180 M1 PO; +ELIQUIS5 MG PO; +MUCINEX600 MG PO; +PRADAXA150 MG PO; +SINGULAIR 10 MG10 M1 PO; +UNICOMPLEX M TA1 TA1 PO
[2019-01-06 10:51] VITALS: BP 157/67
[2019-01-06 11:18] LABS: HEMATOCRIT 46.8 % (42.0-52.0); HEMOGLOBIN 14.8 gm/dL (14.0-18.0); MCH 23.2 pg (26.0-34.0); MCHC 31.7 g/dL (28.0-37.0); MCV 73.1 fL (80.0-100.0); MPV 8.1 fl. (7.2-11.1); NUCLEATED RBCS 0 /100WBC; PLATELET COUNT* 283 thou/uL (150-400); RDW-CV 16.6 % (10.5-14.5); WBC 26.3 thou/uL (4.0-11.0)
[2019-01-06 11:27] LABS: PROTIME 10.5 Seconds (9.20-11.50)
[2019-01-06 11:40] LABS: ANION GAP 7 mmol/L (7-16); BUN 26 mg/dL (7-18); CALCIUM 8.6 mg/dL (8.5-10.1); CHLORIDE 103 mmol/L (98-107); CO2 31 mmol/L (21-32); CREATININE 0.9 mg/dL (0.6-1.3); GLUCOSE 149 mg/dL (70-99); POTASSIUM 4.1 mmol/L (3.5-5.1); SODIUM 141 mmol/L (136-145); TROPONIN-I LEVEL <0.06 ng/mL (<0.06)
[2019-01-06 11:47] LABS: ABSOLUTE LYMPHOCYTES 5.3 thou/uL (0.8-5.3); ABSOLUTE MONOCYTES 0.3 thou/uL (0.0-1.2); ABSOLUTE NEUTROPHILS 20.8 thou/uL (1.6-8.1); ATYPICAL LYMPHS 12 %; PLATELET ESTIMATE ADEQUATE
[2019-01-06 11:51] LABS: ALKALINE PHOSPHATASE 73 U/L (46-116); LIPASE 207 U/L (73-393); NT-PRO BRAIN NAT PEPTIDE 614 pg/mL (<300); SGOT 18 U/L (15-37); SGPT 45 U/L (30-65); TOTAL BILIRUBIN 0.4 mg/dL (<0.1-1.0); TOTAL PROTEIN 6.9 g/dL (6.4-8.2)
[2019-01-06 12:09] LABS: INFLUENZA A ANTIGEN None Detected (None Detect); INFLUENZA B ANTIGEN None Detected (None Detect)
[2019-01-06 12:53] VITALS: BP 154/69
[2019-01-06 13:57] VITALS: BP 155/67
--- NOTE | 2019-01-06 14:25 | EKG ---
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1940 Requested By: Rashid Gonzales Order Number: [id number] MD: Raf Mann Measurements Intervals [place] Rate: 123 P: -6 [place]: 173 QRS: -130 QRSD: 129 T: 50 QT: 331 QTc: 474 Interpretive Statements atrial fibrillation premature complexes, vent Right bundle branch block Compared to ECG 12/30/2018 03:53:29 rate increased Electronically Signed On 01-06-2019 14:24:44 GELATIN PLANT SUPERVISOR by Raf Mann [email or web address] <ELECTRONICALLY SIGNED> By: Raf Mann MD, [facility] 01/06/19 1424 1059 1059 Raf Mann MD, [facility] /EPI
[2019-01-06 15:52] VITALS: BP 154/70
[2019-01-06 18:21] VITALS: BP 154/70
[2019-01-06 20:00] VITALS: BP 132/62
[2019-01-06 20:39] LABS: URINE BILIRUBIN NEGATIVE (Negative); URINE BLOOD NEGATIVE (Negative); URINE CLARITY CLEAR; URINE COLOR YELLOW; URINE GLUCOSE-RANDOM 1+ (Negative); URINE KETONES NEGATIVE (Negative); URINE LEUKOCYTES-REFLEX NEGATIVE (Negative); URINE NITRITE-REFLEX NEGATIVE (Negative); URINE PROTEIN NEGATIVE (Negative); URINE SPECIFIC GRAVITY >= 1.030 (1.005-1.030); URINE UROBILINOGEN 0.2 E.U./dl (0.2-1.0)
[2019-01-07] VITALS: BP 108/54
[2019-01-07 04:00] VITALS: BP 150/66
[2019-01-07 05:08] LABS: ABSOLUTE LYMPHOCYTES 0.4 thou/uL (0.8-5.3); ABSOLUTE MONOCYTES 1.3 thou/uL (0.0-1.2); ABSOLUTE NEUTROPHILS 15.3 thou/uL (1.6-8.1); BASOPHILS 0.2 %; HEMATOCRIT 39.3 % (42.0-52.0); LYMPHOCYTES 2.4 %; MCHC 31.4 g/dL (28.0-37.0); MCV 73.1 fL (80.0-100.0); MONOCYTES 7.5 %; MPV 8.2 fl. (7.2-11.1); NUCLEATED RBCS 0 /100WBC; PLATELET COUNT* 253 thou/uL (150-400); POLYS 89.9 %; RBC 5.38 mil/uL (4.50-6.00); RDW-CV 16.5 % (10.5-14.5)
[2019-01-07 05:14] LABS: HEMOGLOBIN 12.3 gm/dL (14.0-18.0)
[2019-01-07 05:18] LABS: CALCIUM 8.3 mg/dL (8.5-10.1); CREATININE 0.7 mg/dL (0.6-1.3); MAGNESIUM 2.2 mg/dL (1.8-2.4); POTASSIUM 4.3 mmol/L (3.5-5.1)
[2019-01-07 08:00] VITALS: BP 162/73
[2019-01-07 12:00] VITALS: BP 154/74
[2019-01-07 16:00] VITALS: BP 92/74
[2019-01-07 20:00] VITALS: BP 152/59
[2019-01-08] VITALS: BP 147/66
[2019-01-08 04:00] VITALS: BP 138/59
[2019-01-08 04:49] LABS: ABSOLUTE LYMPHOCYTES 0.9 thou/uL (0.8-5.3); ABSOLUTE MONOCYTES 2.6 thou/uL (0.0-1.2); ABSOLUTE NEUTROPHILS 17.9 thou/uL (1.6-8.1); BASOPHILS 0.1 %; EOSINOPHILS 0.2 %; HEMATOCRIT 38.5 % (42.0-52.0); LYMPHOCYTES 4.3 %; MCH 22.5 pg (26.0-34.0); MCHC 31.1 g/dL (28.0-37.0); MCV 72.4 fL (80.0-100.0); MONOCYTES 12.1 %; MPV 8.1 fl. (7.2-11.1); NUCLEATED RBCS 0 /100WBC; PLATELET COUNT* 232 thou/uL (150-400); POLYS 83.3 %; RBC 5.32 mil/uL (4.50-6.00); RDW-CV 16.2 % (10.5-14.5); WBC 21.5 thou/uL (4.0-11.0)
[2019-01-08 04:50] LABS: CALCIUM 8.3 mg/dL (8.5-10.1); CREATININE 0.7 mg/dL (0.6-1.3); POTASSIUM 4.2 mmol/L (3.5-5.1)
[2019-01-08 08:00] VITALS: BP 153/99
[2019-01-08 12:28] LABS: BE 3.1 mmol/L (-2 to +3); PCO2 44.1 mmHg (35.0-45.0); PO2 69.4 mmHg (75.0-100.0); pH 7.421 (7.340-7.450)
[2019-01-08 16:00] VITALS: BP 133/63
[2019-01-08 20:00] VITALS: BP 127/74
[2019-01-09] VITALS (7 sets, daily range): BP systolic 109–144; BP diastolic 54–74
[2019-01-09 04:24] LABS: BE 1.7 mmol/L (-2 to +3); PCO2 45.2 mmHg (35.0-45.0); pH 7.395 (7.340-7.450)
[2019-01-09 04:26] LABS: HEMATOCRIT 40.9 % (42.0-52.0); HEMOGLOBIN 12.7 gm/dL (14.0-18.0); MCH 22.7 pg (26.0-34.0); MCHC 31.1 g/dL (28.0-37.0); MCV 73.1 fL (80.0-100.0); MPV 7.9 fl. (7.2-11.1); RBC 5.6 mil/uL (4.50-6.00); RDW-CV 16.2 % (10.5-14.5)
[2019-01-09 04:43] LABS: ALBUMIN 2.5 g/dL (3.4-5.0); CALCIUM 7.9 mg/dL (8.5-10.1); CREATININE 0.8 mg/dL (0.6-1.3); MAGNESIUM 2.1 mg/dL (1.8-2.4); POTASSIUM 4.1 mmol/L (3.5-5.1); TOTAL BILIRUBIN 0.3 mg/dL (<0.1-1.0); TOTAL PROTEIN 5.8 g/dL (6.4-8.2)
--- NOTE | 2019-01-09 08:03 | CON ---
[address] [address] CONSULTATION Name: CHELSEA RODRIGUEZ JR Room: [address] IN ..#: [id number] Admission: 01/06/19 Attend Phys: Yaritza Braxton MD Discharge: Date of : 38 Report #: [id number] THIS REPORT FOR: //name// CC: Raf Braxton DATE OF SERVICE: 01/08/2019 ATTENDING PHYSICIAN: Nickie Francis MD. PRIMARY CARE PHYSICIAN: Raf Nath MD. INDICATION FOR CONSULTATION: Right lower lobe pneumonia, severe COPD. CLINICAL SUMMARY: The patient is an 78-year-old male, prior heavy smoker, with severe COPD. He has been on oxygen and every other day steroid dependent. He came back in the hospital after he was just discharged on 01/01/2019. He was admitted on 12/28/2018 with atypical chest pain. Stress test was negative. He was treated for COPD exacerbation and steroids were weaned. He went home on a tapering dose of prednisone, but appears he did not get this filled to the or the , so he is a couple of days without oral steroids. He states he was taking his breathing treatments at home. He started coughing up thick yellow sputum. He is still coughing up thick yellow sputum this morning after he has been in the hospital for a couple of days. He is on some IV cefepime. I am not certain whether he went home on oral antibiotics or not last hospital stay. Chest x-ray has shown a patchy right lower lobe infiltrate. He denies any fever, chills or sweats. He is up-to-date on his pneumonia vaccines and his flu vaccines. He denies any sick or ill contacts at home. He has an adult daughter who helps come in and look after him. He was just placed on BiPAP this morning to decrease work of breathing. ABGs were fairly stable on 3 liters with a pO2 in the high 60s and a pCO2 of 44 with a balanced pH. Again, he has been oxygen dependent for the past 5-7 years. PAST MEDICAL HISTORY: He has a history of atrial fibrillation with previous rapid ventricular response. He has had some atypical chest pain with negative dobutamine stress test last hospital stay, hypertension and then severe COPD with an FEV1 of 0.7, FVC of 2.2 from our office records 4-5 years ago. ALLERGIES: He has no known medical allergies. CURRENT OUTPATIENT MEDICATIONS: Included albuterol nebulizer 4 times a day followed with budesonide 0.25 mg inhaled twice daily, oxygen was at 3 liters, montelukast was 10 mg in the evening. He is supposed to be on a prednisone taper of 40 mg a day for 3 days, 30 mg a day for 3 days, 20 for 3 days, 10 for 3 [place] [address] CONSULTATION Name: CHELSEA RODRIGUEZ JR Room: [address]#: [id number] Admission: 01/06/19 Attend Phys: Yaritza Braxton MD Discharge: Date of : 38 Report #: [id number]. Currently, he is on Solu-Medrol 62.5 mg IV push every 8 hours and cefepime 1 gram IV piggyback every 8 hours. He was on diltiazem 180 mg b.i.d. that has been held at this time. Again on apixaban 5 mg b.i.d. for atrial fibrillation. PAST SURGICAL HISTORY: Includes 2 cardiac stents in 2013, left shoulder replacement in 2014. FAMILY HISTORY: Negative for premature cardiopulmonary disease. SOCIAL HISTORY: The patient is retired, lives on his own near his daughter. I think he moved up from [place] several years ago to be closer to her. He was seeing Dr. Naomi Santizo over at the [facility] and has prior [id number] history of smoking. He quit about 5-6 years ago. Denies any alcohol or illicit drug use. REVIEW OF SYSTEMS: A 14-point review of systems reviewed and negative except for pertinent positives noted in HPI. PHYSICAL EXAMINATION: GENERAL: Pleasant 78-year-old male, alert and oriented, in mild distress. He can talk to me in half sentences and he is breathing on the BiPAP machine at this time at 35% at 12/6 with a backup rate of 14. VITAL SIGNS: Blood pressure is 153/96. Heart rate is 84, slightly irregular. Respirations were 20 and temperature was 36.3 degrees. He is 5 feet 10 inches tall, weight 75 kilograms or 168 pounds, BMI is 25. HEENT: Unremarkable. Mucous membranes slightly dry. Pharynx is clear. No increase in jugular venous pressure. NECK: Supple without nodes. CHEST: Shows inspiratory and expiratory wheeze with prolonged expiratory phase. Some use of accessory muscles. CARDIOVASCULAR: Shows irregular rate and rhythm with ventricular response in the 80s. No S3 is noted. ABDOMEN: Soft, without masses or megaly. EXTREMITIES: No calf tenderness. No cyanosis, clubbing or edema. NEUROLOGIC: Nonfocal. He moves all fours to commands. LABORATORY DATA: From 01/08/2019 early this morning, hemoglobin is 12, white count is 21,500, normal differential, and platelets are 232,000. No increase in eosinophils was noted. Sodium is 138, potassium is 4.2, chloride 103, bicarb is 31, BUN is 21 with a creatinine of 0.7, glucose is 116. Previous anti-BNP was slightly elevated at 614. Albumin was 3. ABGs this morning on 3 liters showed a pO2 of 69, pH 7.42, pCO2 is 44, bicarbonate is 28 and sat of 94%. Carboxyhemoglobin is only 0.3. Chest x-ray PA and lateral shows COPD, hyperinflation. He has a patchy right lower lobe posterior infiltrate, appears to be new from the prior film from 12/28/2018. Again, [place] [address] CONSULTATION Name: CHELSEA RODRIGUEZ JR Room: [address] IN [facility]#: [id number] Admission: 01/06/19 Attend Phys: Yaritza Braxton MD Discharge: Date of : 36 Report #: [id number] the office several years ago shows an FEV1 of 0.7, FVC of 2.2, ratio was 31%, FEV1 was about 30% of predicted with decreased mid flow rates. IMPRESSION: 1. Severe chronic obstructive pulmonary disease, oxygen dependent, every other day steroid dependent. 2. Right lower lobe pneumonia with purulent muco-bronchitis. 3. Atrial fibrillation. 4. Coronary artery disease with stents. PLAN: Continue on cefepime, DuoNeb and nebulizer treatments. Continue IV Solu-Medrol burst, also on inhaled budesonide and he is also on montelukast 10 mg daily. We will check sputum for Gram stain and C and S. One was ordered on the , it was not obtained. We are going to keep a sputum cup at bedside, followup chest x-ray in a couple of days and see if we can get him to stay stable and make certain he takes his medications immediately when he goes home and is compliant with all his medications. I wonder whether either a home health nursing and/or one week stay in rehab or chcf facility may be beneficial for this individual. At this time, he is a DNR/DNI and I concur with that. He has a guarded prognosis. We will see if we can keep him out of the hospital. Thanks again for allowing us to participate in this man's care. We will follow up along with you while he is in the hospital. If he wants to see our group in practice, he can come back and see me in the office in 4-6 weeks. I have seen him before in the past. We will check some spirometry then and see what we are up to. <ELECTRONICALLY SIGNED> By: Chase Contreras MD 01/09/19 0803 1312 [id number] Contreras MD /nt
[2019-01-10] VITALS: BP 148/47
[2019-01-10 04:00] VITALS: BP 119/46
[2019-01-10 05:22] LABS: HEMATOCRIT 39.2 % (42.0-52.0); HEMOGLOBIN 12.1 gm/dL (14.0-18.0); MCH 22.9 pg (26.0-34.0); MCV 73.8 fL (80.0-100.0); MPV 8.5 fl. (7.2-11.1); RBC 5.31 mil/uL (4.50-6.00); RDW-CV 16.3 % (10.5-14.5); WBC 18.6 thou/uL (4.0-11.0)
[2019-01-10 05:47] LABS: CREATININE 0.8 mg/dL (0.6-1.3); MAGNESIUM 2.3 mg/dL (1.8-2.4); POTASSIUM 4.2 mmol/L (3.5-5.1)
[2019-01-10 08:00] VITALS: BP 112/67
[2019-01-10 11:31] VITALS: BP 129/61
[2019-01-10 15:40] VITALS: BP 143/65
[2019-01-10 19:30] VITALS: BP 147/73
[2019-01-11] VITALS: BP 145/63
[2019-01-11 04:00] VITALS: BP 104/62
[2019-01-11 08:00] VITALS: BP 134/64
[2019-01-11 11:30] VITALS: BP 142/61
[2019-01-11 15:26] VITALS: BP 142/63
[2019-01-11 19:30] VITALS: BP 136/57
[2019-01-12] VITALS: BP 138/63
[2019-01-12 04:00] VITALS: BP 144/71
[2019-01-12 08:00] VITALS: BP 129/61
[2019-01-12 12:00] VITALS: BP 153/67
[2019-01-12 12:26] LABS: BE 6.8 mmol/L (-2 to +3); PCO2 48.5 mmHg (35.0-45.0); PO2 73.6 mmHg (75.0-100.0)
[2019-01-12 16:00] VITALS: BP 140/55
[2019-01-12 20:24] VITALS: BP 152/63
[2019-01-13] VITALS (7 sets, daily range): BP systolic 117–147; BP diastolic 62–93
[2019-01-13 04:39] LABS: HEMATOCRIT 38.1 % (42.0-52.0); HEMOGLOBIN 12.1 gm/dL (14.0-18.0); MCH 23.1 pg (26.0-34.0); MCHC 31.8 g/dL (28.0-37.0); MCV 72.5 fL (80.0-100.0); MPV 7.7 fl. (7.2-11.1); RBC 5.26 mil/uL (4.50-6.00); RDW-CV 16.3 % (10.5-14.5); WBC 13.7 thou/uL (4.0-11.0)
[2019-01-13 05:15] LABS: CALCIUM 7.8 mg/dL (8.5-10.1); CREATININE 0.9 mg/dL (0.6-1.3); MAGNESIUM 2.2 mg/dL (1.8-2.4); POTASSIUM 4.3 mmol/L (3.5-5.1)
[2019-01-14] VITALS: BP 126/57
[2019-01-14 04:00] VITALS: BP 131/67
[2019-01-14 08:26] VITALS: BP 137/67
[2019-01-14 11:26] VITALS: BP 144/71
[2019-01-14 15:25] VITALS: BP 113/61
[2019-01-14 20:00] VITALS: BP 150/74
[2019-01-15] VITALS (7 sets, daily range): BP systolic 137–140; BP diastolic 53–76
[2019-01-15] MEDS ORDERED: PREDNISONE 10 M10 MG PO (11:26)
[2019-01-15] MEDS ORDERED: CEFDINIR300 MG PO (11:26)
[2019-01-15] MEDS ORDERED: FLOMAX0.4 MG PO (11:26)
[2019-01-15] MEDS ORDERED: IPRAT-ALBUT 0.5-3 ML INH (11:26)
[2019-01-15] MEDS ORDERED: ALBUTEROL SULFAT2 MG PO (11:26)
[2019-01-15] MEDS ORDERED: PULMICORT0.5 MG/2 M INH (11:26)
[2019-01-15] MEDS ORDERED: BROVANA15 MCG/2 M INH (11:26)
[2019-01-15] MEDS ORDERED: MELATONIN5 M1 PO (11:27)
== END 2019-01-15 14:54 | disposition home health service (06) | DRG 193 ==
LOC: M.ERS 10:50 → M.TBA-ER 12:12 → M.2W 12:12
PROVIDERS: Emergency Medicine; Internal Medicine; ADMIT Family Medicine
PROC: 5A09357 Assistance with Respiratory Ventilation, Less than 24 Consecutive Hours, Continuous Positive Airway Pressure (ICD-10-PCS; principal; 2019-01-12)
DX: J15.9 Unspecified bacterial pneumonia (principal); J96.21 Acute and chronic respiratory failure with hypoxia; J44.1 Chronic obstructive pulmonary disease with (acute) exacerbation; J44.0 Chronic obstructive pulmonary disease with (acute) lower respiratory infection; I48.91 Unspecified atrial fibrillation; I10 Essential (primary) hypertension; G47.00 Insomnia, unspecified; Z96.612 Presence of left artificial shoulder joint; I25.10 Atherosclerotic heart disease of native coronary artery without angina pectoris; Z79.52 Long term (current) use of systemic steroids; Z95.5 Presence of coronary angioplasty implant and graft; Z99.81 Dependence on supplemental oxygen; Z79.899 Other long term (current) drug therapy

== ENCOUNTER 2019-01-20 02:31 | Inpatient (IN) | payer MEDICARE, OTHER ==
[~2019-01-20] VITALS: Ht 170.2 cm; Wt 74.1 kg
[~2019-01-20 02:31] MED LIST changes: +ALBUTEROL SULFAT2 MG PO; +CEFDINIR300 MG PO; +FLOMAX0.4 MG PO; +IPRAT-ALBUT 0.5-3 ML INH; +MELATONIN5 M1 PO; +PULMICORT0.5 MG/2 M INH
[2019-01-20 02:32] VITALS: BP 155/73
[2019-01-20 03:54] LABS: HEMATOCRIT 41.7 % (42.0-52.0); MCH 23.2 pg (26.0-34.0); MCHC 31.1 g/dL (28.0-37.0); MCV 74.3 fL (80.0-100.0); MPV 7.6 fl. (7.2-11.1); NUCLEATED RBCS 0 /100WBC; PLATELET COUNT* 246 thou/uL (150-400); RBC 5.61 mil/uL (4.50-6.00); RDW-CV 17.2 % (10.5-14.5)
[2019-01-20 04:13] LABS: PROTIME 10.4 Seconds (9.20-11.50)
[2019-01-20 04:21] LABS: ANION GAP 3 mmol/L (7-16); BUN 29 mg/dL (7-18); CALCIUM 8.2 mg/dL (8.5-10.1); CHLORIDE 105 mmol/L (98-107); CO2 34 mmol/L (21-32); CREATININE 1.1 mg/dL (0.6-1.3); GLUCOSE 161 mg/dL (70-99); POTASSIUM 4.3 mmol/L (3.5-5.1); SODIUM 142 mmol/L (136-145); TROPONIN-I LEVEL <0.06 ng/mL (<0.06)
[2019-01-20 04:22] LABS: ALBUMIN 2.8 g/dL (3.4-5.0); ALKALINE PHOSPHATASE 65 U/L (46-116); LIPASE 245 U/L (73-393); NT-PRO BRAIN NAT PEPTIDE 456 pg/mL (<300); SGOT 22 U/L (15-37); SGPT 64 U/L (30-65); TOTAL BILIRUBIN 0.6 mg/dL (<0.1-1.0); TOTAL PROTEIN 5.8 g/dL (6.4-8.2)
[2019-01-20 04:25] LABS: URINE BILIRUBIN NEGATIVE (Negative); URINE BLOOD NEGATIVE (Negative); URINE CLARITY CLEAR; URINE COLOR YELLOW; URINE GLUCOSE-RANDOM NEGATIVE (Negative); URINE KETONES NEGATIVE (Negative); URINE LEUKOCYTES-REFLEX NEGATIVE (Negative); URINE NITRITE-REFLEX NEGATIVE (Negative); URINE PROTEIN NEGATIVE (Negative); URINE UROBILINOGEN 0.2 E.U./dl (0.2-1.0)
[2019-01-20 06:31] LABS: ABSOLUTE LYMPHOCYTES 0.2 thou/uL (0.8-5.3); ABSOLUTE MONOCYTES 1.4 thou/uL (0.0-1.2); ABSOLUTE NEUTROPHILS 22.3 thou/uL (1.6-8.1); ANISOCYTOSIS 1+; MYELOCYTES 1 %; PLATELET ESTIMATE ADEQUATE; POIKILOCYTOSIS 1+
[2019-01-20 11:11] VITALS: BP 125/52
--- NOTE | 2019-01-20 11:38 | EKG ---
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: Jennifer POZO : 1940 Requested By: Rashid Gonzales Order Number: [id number] MD: Jose Wynn Measurements Intervals [place] Rate: 94 P: 256 [place]: 162 QRS: 182 QRSD: 135 T: 7 QT: 363 QTc: 454 Interpretive Statements Atrial fibrillation By bundle-branch block Compared to ECG 01/06/2019 10:59:07 No significant changes noted Electronically Signed On 01-20-2019 11:37:23 CDT by Jose Wynn [email or web address] <ELECTRONICALLY SIGNED> By: Jose Wynn MD, [facility] 01/20/19 1137 0236 0236 Jose Wynn MD, [facility] /EPI
[2019-01-20 15:15] VITALS: BP 118/53
[2019-01-20 16:11] VITALS: BP 118/53
[2019-01-20 17:22] VITALS: BP 126/66
--- NOTE | 2019-01-20 18:12 | NUR ---
VERIFIED DOSE OF DILTIAZEM WITH PATIENT'S PHARMACY, TAKES 180MG DAILY EXTENDED RELEASE. WILL UPDATE PATIENT'S HOME MED LIST TO REFLECT.
--- NOTE | 2019-01-20 18:46 | NUR ---
PATIENT ADMITTED TO ROOM 304 VIA BED FROM ER AT 1630. ADMISSION PROCESS COMPLETED. SALINE LOCK PATENT TO LEFT HAND. O2 IN PLACE AT 5L/NC. PATIENT STATES HAVING DULL ABDOMINAL PAIN RATING PAIN AT A 3 OUT OF 10, DENIES THE NEED FOR PAIN MEDS. BILATERAL ANKLES AND FEET SWOLLEN WITH 2+ EDEMA NOTED. PATIENT'S SKIN INTACT, NO BREAKDOWN NOTED. PATIENT'S HOME MEDS RECONCILED. REFUSING SCDS. PATIENT'S DAUGHTER AT BEDSIDE WHEN ADMITTED. ADVANCED DIRECTIVE PLACED ON CHART. FALL PRECUATIONS IN PLACE. CALL LIGHT WITHIN REACH. HOURLY ROUNDING COMPLETED. CALL LIGHT WITHIN REACH. WILL CONTINUE WITH PLAN OF CARE.
[2019-01-20 21:00] VITALS: BP 136/75
--- NOTE | 2019-01-21 05:12 | NUR ---
PT SLEPT ON AND OFF THIS SHIFT. ASSESSMENT DOCUMENTED, MEDS GIVEN PER E-JAN. IV PATENT. NO REPORTS OF PAIN THIS SHIFT. PT DID HAVE A BOWEL MOVEMENT THIS SHIFT WITH SOME BLOOD IN IT. O2 REMAINED ON THIS SHIFT. WILL CONTINUE WITH PLAN OF CARE.
[2019-01-21 07:45] VITALS: BP 119/85
[2019-01-21 16:00] VITALS: BP 128/54
--- NOTE | 2019-01-21 16:48 | NUR ---
SW met with pt to complete initial assessment, introduce self, and SW role. Pt alert, oriented. Pt lives at the [facility]. Pt has power wc, Trilogy, Oxygen. [facility] active with [facility], when SW asked about HH pt said he is "easily confused" and he plans to discuss with his PCP the HH preference. Pt also expressed SW could speak with pt dotty Tanner for dc planning and/or any questions or needs. Pt has had need for transportation home in the past. SW to continue to follow to assist with safe dc planning.
--- NOTE | 2019-01-21 17:07 | NUR ---
PATIENT RESTING IN BED. PATIENT HAD COMPLAINTS OF RIGHT GROIN PAIN THIS AM, DR CLARK NOTIFIED. PATIENT HAD SMALL BOWEL MOVEMENT WITH DARK RED BLOOD THIS AM, DR CLARK NOTIFIED. PATIENT HAS POOR APPETITE, BUT IS TOLERATING LIQUIDS. PATIENT IS UP WITH ASSIST TO COMMODE AND IS SHORT OF AIR WITH EXERTION. OXYGEN ON AT 4L/NC. PATIENT DENIES ANY FURTHER NEEDS AT THIS TIME. CALL LIGHT WITHIN REACH. WILL CONTINUE TO MONITOR.
[2019-01-21 19:40] VITALS: BP 128/59
[2019-01-22 04:11] LABS: ABSOLUTE LYMPHOCYTES 0.2 thou/uL (0.8-5.3); ABSOLUTE MONOCYTES 1.1 thou/uL (0.0-1.2); ABSOLUTE NEUTROPHILS 27.2 thou/uL (1.6-8.1); BASOPHILS 0.2 %; HEMATOCRIT 38.7 % (42.0-52.0); HEMOGLOBIN 12.1 gm/dL (14.0-18.0); LYMPHOCYTES 0.9 %; MCH 23.2 pg (26.0-34.0); MCHC 31.2 g/dL (28.0-37.0); MCV 74.5 fL (80.0-100.0); MONOCYTES 3.8 %; NUCLEATED RBCS 0 /100WBC; PLATELET COUNT* 214 thou/uL (150-400); POLYS 95.1 %; RBC 5.19 mil/uL (4.50-6.00); WBC 28.5 thou/uL (4.0-11.0)
[2019-01-22 04:13] LABS: CALCIUM 7.3 mg/dL (8.5-10.1); CREATININE 0.8 mg/dL (0.6-1.3); MAGNESIUM 2.3 mg/dL (1.8-2.4); POTASSIUM 4.8 mmol/L (3.5-5.1)
--- NOTE | 2019-01-22 05:14 | NUR ---
PT SLEPT MOST OF SHIFT. ASSESSMENT DOCUMENTED. MEDS GIVEN PER E-JAN. IV PATENT, ABX INFUSED. NO REPORTS OF PAIN THIS SHIFT. PT REPORTED FEELING BETTER THIS SHIFT. WILL CONTINUE WITH PLAN OF CARE.
[2019-01-22 08:00] VITALS: BP 124/54
[2019-01-22 14:30] LABS: BE 2.4 mmol/L (-2 to +3); PCO2 39.8 mmHg (35.0-45.0); PO2 93.4 mmHg (75.0-100.0); pH 7.443 (7.340-7.450)
[2019-01-22 16:30] VITALS: BP 113/54
--- NOTE | 2019-01-22 16:31 | NUR ---
SW spoke with pt dtr Flores a couple times today regarding care plan and dc planning. Pt dtr expressed concern for pt's medications and she wonders about possible adverse side effects to some or the combination of medications. ANNE discussed with Dr Braxton who addressed with the pt/pt dtr. Pt dtr explained that she would be open to considering hospice services after dc but wants to explore options and take her time before signing on with hospice so she plans to discuss with pt PCP. ANNE provided pt dtr with resources on different hospice agencies and [facility] for other resources/referrals. SW to continue to follow to assist with safe dc planning.
--- NOTE | 2019-01-22 18:59 | NUR ---
PATIENT RESTING IN BED. PATIENT DENIES ANY PAIN. PATIENT FOUND TO BE TACHYPNIC THIS AFTERNOON AFTER AWAKING FROM [place]. DR CLARK ORDERED ABG'S AND VENTI-MASK. PATIENT STATED HE HAD NEW TRILOLGY AT HOME THAT HE USED ONCE BEFORE COMING TO HOSPITAL, DAUGHTER BROUGHT TRIOLOGY IN AND PATIENT IS WEARING WITH SLEEP. PATIENT HAS FAIR APPETITE. PATIENT DENIES ANY NEEDS AT THIS TIME. CALL LIGHT WITHIN REACH. WILL CONTINUE TO MONITOR.
[2019-01-22 20:30] VITALS: BP 139/65
--- NOTE | 2019-01-23 05:52 | NUR ---
PATIENT SLEPT PART OF THE NIGHT. IV REMAINS SALINE LOCKED. PATIENT HAD NO COMPLAINTS OF PAIN. PATIENT WORE HIS TRILOGY MOST OF THE NIGHT. WILL CONTINUE TO MONITOR.
[2019-01-23 07:10] VITALS: BP 127/55
[2019-01-23 16:00] VITALS: BP 137/58
--- NOTE | 2019-01-23 16:02 | NUR ---
ASSESSMENT COMPLETE. PT ALERT AND ORIENTED X4. PT DENIES PAIN. PT REPORTS SOA WITH MINIMAL ACTIVITY, PT IS CURRENTLY ON 5L PER NC WITH [place] SATS. PT WEARS 4L AT HOME. HOME TRILOGY AT BEDISDE TO WEAR AT HS. PULMONARY SAW PATIENT TODAY. IV CEFEPIME AND SOLUMEDROL GIVEN. PT HAD STOOL THIS AM WITH BLOOD. WILL SEND OCCULT SAMPLE WITH NEXT BM. PT IS UP ONE ASSIST. CXR DONE TODAY. SEE ASSESSMENT AND VITALS FOR OTHER DETAILS. CALL LIGHT WITHIN REACH, WILL CONTINUE PLAN OF CARE
[2019-01-23 23:00] VITALS: BP 147/50
--- NOTE | 2019-01-24 05:03 | NUR ---
PT AOX4, SLEPT WELL ON TRILOGY LAST NIGHT. RT TX GIVEN ORDERED. L HAND SL, ABX AND SOLUMEDROL GIVEN ORDERED. O2 5L SAT 95%. [place]AMILLO, FATIGUE. USING URINAL TO VOID. NO STOOLS OVERNIGHT. NO LABS THIS MORNING. ABLE TO USE CALL LITE AND MAKE NEEDS KNOWN. CALL LIT IN EASY REACH, BED ALARM ON FOR SAFETY.
[2019-01-24 07:05] VITALS: BP 141/81
--- NOTE | 2019-01-24 07:10 | CON ---
[address] [address] CONSULTATION Name: CHELSEA RODRIGUEZ JR Room: [address] IN .R.#: [id number] Admission: 01/20/19 Attend Phys: Elijah Romano MD Discharge: Date of : 38 Report #: [id number] THIS REPORT FOR: //name// CC: Elijah Braxton MD DATE OF SERVICE: 01/23/2019 ATTENDING PHYSICIAN: Dr. Yaritza Braxton. He is located in room 304. INDICATION FOR CONSULTATION: Severe COPD. HISTORY OF PRESENT ILLNESS: The patient is an 78-year-old male, prior smoker, with severe COPD. He presented to the hospital on 01/20/2019 with a sharp lower abdominal pain associated with some flatulence. He had some cough and shortness of breath. The patient was just discharged from the hospital 4-5 days prior to that, I think on 01/14/2019 or 01/15/2019 and he was on oxygen at 4 liters. He already had Trelegy at home. He states he was using his Trelegy at home and he was doing okay. He has been steroid dependent. He was on some antibiotics at home. C. diff workup was negative. He still feels short of breath and does not do well at home. He has a daughter, who lives nearby, but she does not live with him and so he is basically on his own. Still feels short of breath at this time, he is on cefepime since he was previously on azithromycin and ceftriaxone and also on a steroid taper. PAST MEDICAL HISTORY: Severe COPD, oxygen and steroid dependent, also Trelegy dependent, atrial fibrillation with previous rapid ventricular response and abdominal pain. ALLERGIES: He has no known medical allergies. OUTPATIENT MEDICATIONS: Included prednisone taper 4 tabs a day for 4 a day, 3 a day for 4 days. He was on cefdinir 300 mg b.i.d., inhaled budesonide, Pulmicort 0.5 mg b.i.d., DuoNeb 4 times daily and then Brovana 15 mcg b.i.d., albuterol tablets were 2 mg daily, oxygen was at 4 liters. He was supposed to be also on montelukast 10 mg daily, diltiazem 180 mg b.i.d., apixaban 5 mg b.i.d. for atrial fib, Lanoxin 0.25 mg daily. PAST SURGICAL HISTORY: Includes left shoulder replacement in 2013, two cardiac stents in 2012. FAMILY HISTORY: Negative for [place] [address] CONSULTATION Name: CHELSEA RODRIGUEZ JR Room: [address] IN [facility]#: [id number] Admission: 01/20/19 Attend Phys: Elijah Romano MD Discharge: Date of : 38 Report #: [id number] SOCIAL HISTORY: Prior smoker 30-40 pack year history of smoking, states he quit 8 years ago and denies any alcohol or illicit drug use. Unfortunately, lives on his own. REVIEW OF SYSTEMS: A 14-point review of systems reviewed and is negative from HPI. PHYSICAL EXAMINATION: GENERAL: An 78-year-old male in no acute distress. He is lying in bed. He can talk to me in half sentences. VITAL SIGNS: Blood pressure was 127/56, heart rate 72 and regular, respirations 20, saturation on 5 liters is 94%. His temperature is 37 degrees. He is 5 feet 10 inches tall, weight is 72 kilograms or 158 pounds, BMI is 24. HEENT: Unremarkable. NECK: Supple without nodes. CHEST: Shows diminished breath sounds without wheeze or rhonchi, decreased. CARDIOVASCULAR: Regular rate and rhythm without murmur, gallop or rub. Heart rate 72. ABDOMEN: Soft, no masses or megaly. EXTREMITIES: No calf tenderness. No cyanosis, clubbing or edema. LABORATORY DATA: From 01/22/2019 shows hemoglobin 12; white count of 28,000, may related to steroid use; MCV is low at 74 and platelet counts 214,000. Normal differential as noted before. Absolute neutrophils 27,000. Sodium is 136, potassium is 4.8, carbon dioxide is 33, BUN is 35, creatinine 0.8 and glucose is 153. ABGs on 01/22/2019 at 2:00 in the afternoon on 8 liters showed a pO2 of 93, pH 7.44, pCO2 is 39, bicarbonate is 26 and sat of 96%. Chest x-ray shows COPD, hyperinflation, no CHF. Abdominal films were negative. IMPRESSION: 1. Very severe chronic obstructive pulmonary disease, doing poorly as an outpatient. He is oxygen and steroid dependent, also Trelegy dependent at night. 2. Abdominal pain, etiology unclear, no evidence of Clostridium difficile colitis. 3. History of atrial fibrillation with ventricular response, controlled. PLAN: I would keep on steroids and IV antibiotics at this time. I think unfortunately the patient is going to need intermediate unit or detention. He seems to do poorly at home and I think he is having a progressive downhill course. He is not having CO2 retention. His previous spirometry in the office FEV1 is 0.5 and 0.6, around 20% of predicted with very severe obstructive defect. Vital capacity has been running 1.5-1.8 liters. Extremely guarded prognosis. He has been a DNR/DNI in the past and I have to revisit that. I am not sure medically there is anything else to offer him except continue current [address] [address] CONSULTATION Name: CHELSEA RODRIGUEZ JR Room: [address] IN [facility]#: [id number] Admission: 01/20/19 Attend Phys: Elijah Romano MD Discharge: Date of : 38 Report #: [id number] meds and slow prednisone taper. Thanks again for allowing us to participate in this man's care. We will follow up along with you while he is in the hospital. <ELECTRONICALLY SIGNED> By: Chase Contreras MD 01/24/19 0710 [id number] Contreras MD /nt
[2019-01-24 15:39] VITALS: BP 115/69
--- NOTE | 2019-01-24 15:43 | NUR ---
ASSESSMENT COMPLETE. PT ALERT AND ORIENTED X4. DAUGHTER AND PATIENT AGREED THAT PATIENT WOULD LIKE TO GO SKILLED WHEN DISCHARGED. CASE MANAGEMENT WILL BE NOTIFIED SATURDAY, NO 3RD MATE HERE TODAY. PT DENIES PAIN. TOLERATING MEALS. LAST BM YESTERDAY. NEW IV STARTED IN LEFT FOREARM. SOLUMEDROL AND IV CEFEPIME ORDERED. PT IS FALL RISK, UP WITH ONE ASSIST. PT USES URINAL NEEDED. SEE ASSESSMENT AND VITALS FOR OTHER DETAILS. CALL LIGHT WITHIN REACH, WILL CONTINUE PLAN OF CARE
[2019-01-24 21:30] VITALS: BP 143/74
[2019-01-25 07:04] VITALS: BP 150/77
--- NOTE | 2019-01-25 07:24 | NUR ---
PT SLEPT WELL OVERNIGHT USING TRILOGY. LAC SL IV ABX GIVEN ORDERED, SOLUMEDROL GIVEN ORDERED.RT TX GIVEN. RESP LABORED, LUNGS COARSE AND WHEEZY. NO STOOL OVERNIGHT. USING URINAL TO VOID. AM LABS DRAWN. ABLE TO USE CALL LITE AND MAKE NEEDS KNOWN.
[2019-01-25 15:15] VITALS: BP 132/53
--- NOTE | 2019-01-25 17:45 | NUR ---
RESUMED CARE OF PATIENT FROM SARIAH ALMANZA. I CONCUR WITH HER DOCUMENTATION. PT RESTING IN BED STATING HE IS FEELING BETTER. NO MEDS GIVEN BY THIS RN. WILL CONTINUE WITH PLAN OF CARE.
[2019-01-25 23:31] VITALS: BP 122/58
--- NOTE | 2019-01-26 04:43 | NUR ---
PT SLEPT FAIRLY WELL OVERNIGHT WEARING TRILOGY, TOOK IT OFF FOR AN HOUR OR SO ENROLLMENT MANAGEMENT DIRECTOR AROUND 0400. LFA SL, ABX AND SOLUMEDROL GIVEN ORDERED. OCC CONGESTED SQL SERVER DBA COUGH HEARD. O2 5L NC WHEN NOT ON TRILOGY. AM LABS. PULMONARY FOLLOWING. NO STOOLS OVERNIGHT. USING URINAL TO VOID WITHOUT DIFFICULTY. ABLE TO USE CALL LITE AND MAKE NEEDS KNOWN. CM FOLLOWING FOR DISCHARGE PLAN.
[2019-01-26 08:00] VITALS: BP 133/64
--- NOTE | 2019-01-26 13:56 | NUR ---
SW met with pt dtr to follow up on dc planning. Pt dtr plans to speak with [facility] to explore assisted living options as pt and pt dtr are both aware that pt will need more assitance at dc. SW discussed other options of different levels of care at [facility] or a detention placement if needed.
[2019-01-26 16:10] VITALS: BP 142/60
--- NOTE | 2019-01-26 17:42 | NUR ---
SHIFT NOTE - PT CONT ON 5L NC. FAMILY PRESENT AT BEDSIDE FOR PART OF SHIFT. PT INC OF STOOL X 1 TODAY. WILL CONTINUE TO MONITOR.
[2019-01-26 22:00] VITALS: BP 149/55
--- NOTE | 2019-01-27 07:40 | NUR ---
PATIENT SLEPT PART OF THE NIGHT. IV TO LEFT FORARM INFILTRATED AND IS NOW RED AND SWOLLEN. NEW IV WAS STARTED IN RIGHT WRIST AND REMAINS SALINE LOCKED. PATIENT WORE HIS TRILOGY MOST OF THE NIGHT. PATIENT IS POSSIBLY GOING SKILLED TODAY OR TOMORROW. WILL CONTINUE TO MONITOR.
[2019-01-27 07:50] VITALS: BP 152/62
--- NOTE | 2019-01-27 15:40 | NUR ---
SW met with pt and pt dtr to follow up on dc planning. Pt dtr visited with [facility] and determined that pt could transition to PRISON and receive care and assistance needed except that [facility] does not have a room available and pt is now on a waiting list. Pt and pt dtr expressed interest in SNF rehab at [facility] and then transition to an PRISON either [facility] if an apt available or a different [facility] that could meet his needs. Pt and pt dtr want to try a SNF and then would possible reconsider hospice or HH or whatever is appropriate and necessary for pt from SNF. Pt dtr [facility]. SW to continue to follow to assist with safe dc planning/SNF placement.
[2019-01-27 17:39] VITALS: BP 133/75
--- NOTE | 2019-01-27 18:06 | NUR ---
PT A&O X4. UP TO CHAIR DURING SHIFT. SOA WITH ACTIVITY. PT REQUIRES EXTRA TIME TO AMBULATE FROM BED TO CHAIR. PT FRUSTRATED WITH HAVING SOA. PT STATES "I WANT TO BE ABLE TO SIT IN CHAIR, WALK TO BATHROOM AND TAKE CARE OF MYSELF". PT HAS TRILOGY @ .
[2019-01-27 21:45] VITALS: BP 137/49
[2019-01-28] VITALS (7 sets, daily range): BP systolic 119–141; BP diastolic 60–88
[2019-01-28 04:21] LABS: HEMATOCRIT 31.6 % (42.0-52.0); HEMOGLOBIN 9.8 gm/dL (14.0-18.0); MCH 23.5 pg (26.0-34.0); MCHC 31.2 g/dL (28.0-37.0); MCV 75.4 fL (80.0-100.0); MPV 8.1 fl. (7.2-11.1); RBC 4.18 mil/uL (4.50-6.00); RDW-CV 17.6 % (10.5-14.5); WBC 16.8 thou/uL (4.0-11.0)
[2019-01-28 04:38] LABS: ALBUMIN 2.5 g/dL (3.4-5.0); CALCIUM 7.4 mg/dL (8.5-10.1); CREATININE 0.7 mg/dL (0.6-1.3); MAGNESIUM 2.3 mg/dL (1.8-2.4); POTASSIUM 4.8 mmol/L (3.5-5.1); TOTAL BILIRUBIN 0.3 mg/dL (<0.1-1.0); TOTAL PROTEIN 4.9 g/dL (6.4-8.2)
--- NOTE | 2019-01-28 05:36 | NUR ---
PATIENT SLEPT PART OF THE NIGHT. IV REMAINS SALINE LOCKED. PATIENT WORE HIS TRILOGY PART OF THE NIGHT. PATIENT IS POSSIBLY GOING SKILLED SOMEWHERE TODAY. WILL CONTINUE TO MONITOR.
--- NOTE | 2019-01-28 11:22 | NUR ---
SW called to follow up with pt dtr on pt/family SNF preference. Pt dtr explained that [facility] would be the first preference. SW prepared referral and associate merchandise planner to fax once pt therapy notes are available. SW to continue to follow to assist with safe dc planning/finalization of SNF placement.
--- NOTE | 2019-01-28 11:29 | NUR ---
BLOWING ENGINEER INFORMED OF NEED TO SEND SKILLED REFERRAL TO [facility]. D/C PIECE MEAT TRIMMER FAXED [facility] PATIENT'S FACESHEET, CLINICAL INFO, AND OT NOTE. D/C PIECE MEAT TRIMMER TO FAX P.T. NOTE WHEN AVAILABLE. CM WILL REMAIN AVAILABLE TO ASSIST AND FOLLOW NEEDED.
--- NOTE | 2019-01-28 17:32 | NUR ---
PT A&O X4. PT UP TO CHAIR. PT REALLY SOA WITH ACTIVITY, WAS PUT ON TRILOGY X2 DURING SHIFT PER PATIENT REQUEST. PT NOW ON 4L NC. DR BETHEA TALKED TO PT REGARDING HOSPICE, CASE MGT CONSULTED. PT SLEEPING IN BED AT THIS TIME. CXR DONE FOR INCREASED SOA, DR BETHEA NOTIFIED.
--- NOTE | 2019-01-28 21:00 | NUR ---
SHIFT ASSESSMENT ABOUT 2014 PATIENT WAS VERY SHORT OF AIR AND BREATHING WAS LABORED SATS WERE 94% ON 4L. HR WAS JUMPING ALL OVER ON THE PULSE OX. PLACED PATIENT ON A TELE MONITOR HR WAS ANYWHERE FROM 120'S TO 140'S IN AFIB. EKG WAS DONE. DR. CLARK WAS CALLED ORDERS RECEIVED TO TRANSFER TO TELE. REPORT WAS CALLED TO WILL RN. PATIENT WAS TRANSERRED WITH HIS BELONGINGS DOWN ROOM 208.
[2019-01-29 04:00] VITALS: BP 142/59
--- NOTE | 2019-01-29 06:23 | NUR ---
PT TO FLOOR APROX 2140, ASSUMED CARE. PROVIDER NOTIFED ABOUT HR AND DILTIAZEM DRIP. NEW ORDERS RECIEVED. VITALS STABLE. AGREE WITH NURSE ASSESSMENT FROM TRANSERFED FLOOR. SEE MAR. SEE CHARTING. FALL PRECAUTIONS IN PLACE. HOURLY ROUNDING FOR SAFETY.
[2019-01-29 09:30] VITALS: BP 145/56
--- NOTE | 2019-01-29 11:55 | NUR ---
ASSUMED PT CARE AT 0700 PT IS ALERT AND ORIENTED X 4 PT DENIES PAIN OR SOA ON 4L/NC, PT IS UP WITH ASSIST X 1-2 TO BEDSIDE COMMODE PT HAS WEAKNESSI IS A FALL RISK BED ALARM IS ON, PT IS AFIB ON THE MONITOR PT HEART RATE NOT SUSTAINED ABOVE 100, PT MAY DISCHARGE TO REHAB WITH PALLITAVE CARE DAUGHTER HAS CONCERNS REGARDING PLACEMENT NOTIFIED MILL HOUSE SUPERVISOR WHO SPOKE WITH DAUGHTER, WILL CONTINUE TO MONITOR
[2019-01-29 12:38] VITALS: BP 103/64
--- NOTE | 2019-01-29 15:06 | EKG ---
[place] [id number] ELECTROCARDIOGRAM REPORT Name: CHELSEA RODRIGUEZ JR Room: [address] ADM IN M.R.#: [id number] Admission: 01/20/19 Attend Phys: Elijah Romano MD Discharge: Date of : 36 Report #: [id number] THIS REPORT FOR: //name// [facility] Test Date: 2019-01-28 Test Time: 20:27:34 Pat Name: CHELSEA RODRIGUEZ Department: Room: [address] Gender: M Finnish Rubber: Errol Leonard : 1940 Requested By: Elijah Romano Order Number: [id number] Reading MD: Romel Huff Measurements Intervals [place] Rate: 135 P: 256 MA: 131 QRS: -153 QRSD: 136 T: 7 QT: 338 QTc: 507 Interpretive Statements Sinus tachycardia with frequent and consecutive pac's RBBB and LPFB Compared to ECG 01/20/2019 02:36:16 Left posterior fascicular block now present Right bundle-branch block now present Electronically Signed On 01-29-2019 15:06:17 CDT by Romel Huff [email or web address] <ELECTRONICALLY SIGNED> By: Romel Huff MD, FACC 01/29/19 1506 26 26 Romel Huff MD, FAC /EPI
--- NOTE | 2019-01-29 15:50 | NUR ---
JACOB spoke with Bhakti at [facility] and confirmed that they will have a skilled bed for Pt on Saturday. Updated Pt's dtr.
[2019-01-29 16:00] VITALS: BP 132/48
[2019-01-29 19:40] VITALS: BP 143/56
[2019-01-30] VITALS: BP 109/70
[2019-01-30 04:00] VITALS: BP 133/62
--- NOTE | 2019-01-30 05:52 | NUR ---
VITALS SIGNS STABLE. SEE MAR. SEE CHARTING. FALL PRECAUTIONS IN PLACE. HOURLY ROUNDING FOR SAFETY.
[2019-01-30 08:00] VITALS: BP 134/59
[2019-01-30 12:00] VITALS: BP 146/58
--- NOTE | 2019-01-30 14:58 | NUR ---
WOUND CARE NOTE: REQUESTED TO SEE PATIENT TO ASSESS LESION TO BUTTOCK. PATIENT PRESENTS WITH A PARTIAL THICKNESS ULCERATION MEASURING 0.7X0.9X0.1 TO THE RIGHT SIDE OF HIS BUTTOCK. UNSURE OF ETIOLOGY. MOIST YELLOW/RED WOUND BED. JA-WOUND INTACT. APPLIED AQUACEL AG TO WOUND BED AND SECURED WITH EXUDERM THEN TEGADERM. PATIENT TOLERATED DRESSING CHANGE WELL. PATIENT WAS EDUCATED ON TURNING AND KEEPING OFF AREA. WILL NEED ENCOURAGEMENT. RECOMMEND TURN Q2 HOURS WAFFLE CUSHION IF IN CHAIR ENCOURAGE GOOD NUTRTION/HYDRATION
[2019-01-30 16:00] VITALS: BP 136/46
--- NOTE | 2019-01-30 16:05 | NUR ---
MILIEU MANAGER RECIEVED A CALL FROM THE PATIENT'S DTR AND SHE INFORMS THAT SHE 'IS CONCERNED THAT THE PATIENT IS NOT WELL ENOUGH FOR SKILLED AND MAY END UP NEEDING LTC OR HOSPICE'. PATIENT'S DTR REQUESTED INFO FOR HOSPICE. D/C OXYGEN EQUIPMENT AIDE PROVIDED HOSPICE LIST AND CONTACT INFO. PATIENT'S DTR AWARE THAT [facility] HAS BED AVIALABLE FOR THE PATIENT TOMORROW IF HE IS READY TO D/C AND SHE IS IN AGREEMENT WITH THAT PLAN WELL, BUT WANTS TO HAVE A 'BACK-UP PLAN IN-CASE HE IS UNABLE TO DO THE SKILLED THERAPY'. CM WILL REMAIN AVAILABLE TO ASSIST AND FOLLOW NEEDED.
--- NOTE | 2019-01-30 17:59 | NUR ---
PT CARE ASSUMED AFTER REPORT. ASSESSMENT COMPLETE. AFIB ON MONITOR. PT ASSISTED UP TO BSC THIS AM WITH ASSIST X2. PT UNABLE TO TOLERATE. BECAME VERY SHORT OF AIR AND ANXIOUS. TRILOGY PLACED ON PT. TOOK AN EXTENDED PERIOD OF TIME TO RETURN TO BASELINE. PRN XANAX ORDEERED AND GIVEN. PT BECAME CONFUSED THIS AFTERNOON. REORIENTED AND REASSURANCE GIVEN. PT WITH OPEN AREA TO BOTTOM. WOUND CARE NURSE NOTIFIED AND PICTURE TAKEN. PT DAUGHTER UPDATED ON PT CONDITION AND PLAN OF CARE. DENIES PAIN. SLOW TO PROGRESS TOWARDS GOALS.
[2019-01-30 19:30] VITALS: BP 94/61
[2019-01-31] VITALS: BP 125/57
[2019-01-31 04:00] VITALS: BP 128/67
[2019-01-31 04:55] LABS: HEMOGLOBIN 9.4 gm/dL (14.0-18.0); MCH 24.5 pg (26.0-34.0); MCHC 32.3 g/dL (28.0-37.0); MCV 75.7 fL (80.0-100.0); MPV 7.4 fl. (7.2-11.1); RBC 3.83 mil/uL (4.50-6.00); RDW-CV 18.5 % (10.5-14.5); WBC 17.6 thou/uL (4.0-11.0)
[2019-01-31 05:11] LABS: CALCIUM 7.5 mg/dL (8.5-10.1); CREATININE 0.8 mg/dL (0.6-1.3); POTASSIUM 4.6 mmol/L (3.5-5.1)
--- NOTE | 2019-01-31 05:16 | NUR ---
ASSUMED PT CARE AT 1930. NURSING ASSESSMENT COMPLETED, PT ON INFRASTRUCTURE TECHNICIAN. PT TRACING SR BBB WITH PACS/AFIB ON INFRASTRUCTURE TECHNICIAN WITH HR BETWEEN 60-100. PT VOICED NO CONCERNS THIS SHIFT, DENIES PAIN. Q2H REPOSITIONING COMPLETED. HIGH FALL PRECAUTIONS IN PLACE, CALL LIGHT WITHIN REACH.
[2019-01-31 07:47] VITALS: BP 139/68
[2019-01-31 11:57] LABS: % SATURATION 9 % (20-39); IRON 26 ug/dL (50-175)
[2019-01-31 12:09] VITALS: BP 115/61
--- NOTE | 2019-01-31 12:22 | NUR ---
CONTINUE TO FOLLOW. WAS CALLED BY DTR TO FURTHER DISCUSS DC PLANS. DTR DOESN'T WANT [facility] AT THIS TIME, SHE FEELS PT MAY NEED MORE THAN JUST SNF. SHE ASKED THAT [facility] AND [facility] BE CHECKED FOR SNF AND POSSIBLE LTC. CALLED AND FAXED TO BOTH FACILITIES IN [place]TICIPATION OF DC SATURDAY? ALSO DISCUSSED DIFFERENCE BETWEEN PALLIATIVE CARE AND HOSPICE WITH BOTH PT AND DTR. THEY ARE OPEN TO MEETING WITH SOMEONE AND OFFERED TO SET UP VISIT, DTR IS INTERESTED IN VISIT SATURDAY AFTER 1030. WOULD LIKE TO MEET WITH [facility]. WILL CONTACT SATURDAY AM TO ARRANGE. PT HOPES TO BE ABLE TO RETURN TO ASSISTED LIVING IN FUTURE IF ABLE, HE REALIZES HE NEEDS REHAB FIRST. WILL FOLLOW
[2019-01-31 15:36] VITALS: BP 128/66
--- NOTE | 2019-01-31 17:19 | NUR ---
PATIENT SOMEWHAT PROGRESSING TOWARDS GOALS. AOX4 THROUGHOUT SHIFT. ABLE TO REST TODAY WITH TRIOLOGY IN PLACE FOR A COUPLE OF HOURS. DOES NOT APPEAR ANXIOUS. DENIES PAIN. DOES APPEAR LABORED/SHORT OF BREATH AT TIMES. PATIENT ABLE TO SIT AT EDGE OF BED WITH PT FOR ABOUT 10 MINUTES. DAUGHTER WORKING WITH CASE MANAGEMENT FOR SKILLED PLACEMENT, POSSIBLY SATURDAY. STARTED ON INSULIN TODAY FOR HYPERGLYEMIA ON LABS. DAUGHTER AND PATIENT EDUCATED ON THIS. DENIES NEW CONCERNS ABOUT CARE.
[2019-01-31 19:45] VITALS: BP 138/72
[2019-02-01] VITALS: BP 153/69
[2019-02-01 04:00] VITALS: BP 123/61
[2019-02-01 06:28] LABS: GLYCOHEMOGLOBIN (HGB A1C) 7.3 % (4.8-5.6)
--- NOTE | 2019-02-01 06:53 | NUR ---
Pt reports he "got some sleep" overnight. Pt wore Trilogy for approximately 4 hours (from MN to 0400). VSS. Pt in SR/SA w/ BBB and PACs, but in Afib at times. Dyspneic w/ the slightest of activity. Voiding per urinal. Will continue to monitor.
[2019-02-01 08:00] VITALS: BP 134/54
[2019-02-01 12:09] VITALS: BP 150/64
[2019-02-01 15:45] VITALS: BP 132/68
--- NOTE | 2019-02-01 18:46 | NUR ---
I ASSUMED CARE OF THE PATIENT AT 1400 FROM [place]. HE IS ALERT AND ORIENTED X4. HOURLY ROUNDING WAS COMPLETED AND PATIENT NEEDS WERE MET. PAIN IS DENIED. ACHS WAS COMPLETED AND INSULIN WAS GIVEN. HE IS PROGRESSING TOWARDS HIS GOALS. WILL CONTINUE TO MONITOR.
[2019-02-01 20:00] VITALS: BP 143/76
[2019-02-02] VITALS: BP 158/81
[2019-02-02 04:00] VITALS: BP 109/79
--- NOTE | 2019-02-02 05:15 | NUR ---
ASSUMED PT CARE AT 1930. NURSING ASSESSMENT COMPLETED AT START OF SHIFT. PT TRACING AFIB ON SEED TRUCKER. PT VOICED NO CONCERNS THIS SHIFT, HOURLY ROUNDING COMPLETED, FALL PRECAUTIONS IN PLACE, Q2H REPOSTIONING COMPLETED. CALL LIGHT WITHIN REACH.
[2019-02-02 08:00] VITALS: BP 128/63
--- NOTE | 2019-02-02 08:06 | NUR ---
CALLED AND SET UP PALLIATIVE CARE/HOSPICE VISIT FOR 1030 THIS AM WITH [facility]
--- NOTE | 2019-02-02 10:52 | NUR ---
PT ASSESSED BY PALLIATIVE/ HOSPICE CARE.
[2019-02-02 12:50] VITALS: BP 124/49
[2019-02-02] MEDS ORDERED: XANAX 0.25 MG0.25 MG PO (12:56)
[2019-02-02] MEDS ORDERED: REGLAN 10 MG TA10 MG PO (12:56)
[2019-02-02] MEDS ORDERED: CARDIZEM CD120 MG PO (12:56)
[2019-02-02] MEDS ORDERED: SENNA PLUS TAB1 EACH PO (12:56)
[2019-02-02] MEDS ORDERED: ESCITALOPRAM OX10 MG PO (12:56)
[2019-02-02] MEDS ORDERED: MIRALAX17 GM PO (12:56)
--- NOTE | 2019-02-02 13:38 | NUR ---
DC orders written. CM spoke with Debra at [facility], they are able to accept Pt to LTC. Updated dtr, dtr will head to [facility] to sign admit paperwork. [facility] here to assess Pt, CM found out that [facility] does not have a contract with [facility] and their web applications administrator is out of town for a week. Dtr opted to switch to [facility]. CM faxed referral to [facility], waiting on someone to come and eval Pt, and order equipment. CM confirmed that Pt can dc with his trilogy. Updated Debra, Pt should dc later today. Following.
[2019-02-02 16:25] VITALS: BP 136/64
--- NOTE | 2019-02-02 16:59 | NUR ---
TRIED TO CALL [facility] TO [facility] HOWEVER NO RN ANSWERED PHONE CALL.
--- NOTE | 2019-02-02 17:52 | NUR ---
TELE AND IV DISCONTINUED. PT DISCHARHED TO HOSPICE CARE VIA [facility].
== END 2019-02-02 17:45 | disposition hospice, inpatient (51) | DRG 871 ==
LOC: M.ERS 02:31 → M.TBA-ER 06:31 → M.3W 16:22 → M.2W 01-28 21:26
PROVIDERS: Emergency Medicine; Family Medicine; Internal Medicine; ADMIT Internal Medicine
PROC: 5A09357 Assistance with Respiratory Ventilation, Less than 24 Consecutive Hours, Continuous Positive Airway Pressure (ICD-10-PCS; principal; 2019-01-23)
PROC: 5A09357 Assistance with Respiratory Ventilation, Less than 24 Consecutive Hours, Continuous Positive Airway Pressure (ICD-10-PCS; 2019-01-29)
PROC: 5A09357 Assistance with Respiratory Ventilation, Less than 24 Consecutive Hours, Continuous Positive Airway Pressure (ICD-10-PCS; 2019-02-01)
DX: A41.9 Sepsis, unspecified organism (principal); J96.21 Acute and chronic respiratory failure with hypoxia; J15.9 Unspecified bacterial pneumonia; J44.1 Chronic obstructive pulmonary disease with (acute) exacerbation; J44.0 Chronic obstructive pulmonary disease with (acute) lower respiratory infection; E44.0 Moderate protein-calorie malnutrition; Z66 Do not resuscitate; I48.2 Chronic atrial fibrillation; F32.9 Major depressive disorder, single episode, unspecified; G72.9 Myopathy, unspecified; Z96.612 Presence of left artificial shoulder joint; K59.00 Constipation, unspecified; Z99.81 Dependence on supplemental oxygen; Z95.5 Presence of coronary angioplasty implant and graft; Z79.52 Long term (current) use of systemic steroids; Z87.891 Personal history of nicotine dependence; Z68.25 Body mass index [BMI] 25.0-25.9, adult